=== PATIENT | female | born 1955 | race Hispanic/Latino ===

== ENCOUNTER 2019-01-13 00:34 | Emergency (ER) | payer OTHER ==
[~2019-01-13] VITALS: Ht 154.9 cm; Wt 62.1 kg
--- OUTSIDE RECORDS SUMMARY | 2019-01-13 00:38 | XMS REPORT | Summary of Care ---
Author Author [facility] Organization [facility] Address Unknown Phone Unavailable Encounter BROCK Solano(CORRINA) [id number] Date(s): 03/04/15 - 03/04/15 [facility] [address] [place] [address]- Discharge Disposition: Home Attending Physician: Petty Pardo MD Referring Physician: Petty Pardo MD Vital Signs No data available for this section Problem List Condition Effective Dates Status Health Status Informant Atrophic vaginitis1 07/22/13 Active Benign essential 07/10/13 Active hypertension2 Screening for breast Active cancer(Confirmed) Chronic depression3 07/10/13 Active GERD Active (gastroesophageal reflux disease)(Confirmed) Generalized 09/04/14 Active osteoarthritis4 History of polyp of 09/04/14 Active colon5 Hypertriglyceridemia 07/10/13 Active 6 Hypomagnesemia7, 8 01/27/14 Active Leg cramps9 01/02/14 Active Menopausal 05/29/14 Active ioaidzzs14 Musculoskeletal neck Active pain(Confirmed) Overactive quqcsbd25 10/09/14 Active Postmenopausal 07/22/13 Active state12 Diabetes mellitus 07/10/13 Active type 2, controlled, without [id number] Urinary 10/09/14 Active pmodbroorrrt59 Varicose veins of 09/04/14 Active lower huqwdosgk80 1Data migrated from [employer] on 09/23/14. 2Data migrated from [employer] on 09/23/14. 3Data migrated from [employer] on 09/23/14. 4Data migrated from [employer] on 10/29/14. 5Data migrated from [employer] on 10/29/14. 6Data migrated from [employer] on 09/23/14. 7Data migrated from [employer] on 10/29/14. 8Data migrated from [employer] on 09/23/14. 9Data migrated from [employer] on 09/23/14. 10Data migrated from [employer] on 10/29/14. 11Data migrated from [employer] on 10/29/14. 12Data migrated from [employer] on 09/23/14. 13Data migrated from [employer] on 09/23/14. 14Data migrated from [employer] on 10/29/14. 15Data migrated from [employer] on 10/29/14. Allergies, Adverse Reactions, Alerts Substance Reaction Severity Status NKDA Active Medications No data available for this section Results No data available for this section Immunizations Vaccine Date Refusal Reason influenza virus vaccine, inactivated 02/02/15 Procedures Procedure Date Related Diagnosis Body Site Colonoscopy1 11/22/12 Excision of cyst of breast2 Partial hysterectomy3 1polyp, repeat in 2 years 2right breast 3due to DUB, was left with one ovary, 1993 Social History Social History Type Response Substance Abuse Use: None. Exercise Exercise duration: 30. Exercise frequency: 5-6 times/week. Exercise type: Walking. 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 Alcohol Past Smoking Status Never smoker; Concerns about tobacco use in household: No; Exposure to Tobacco Smoke None; Cigarette Smoking Last 365 Days No; Reg Smoking Cessation Counseling No Assessment and Plan No data available for this section
--- OUTSIDE RECORDS SUMMARY | 2019-01-13 00:38 | XMS REPORT | Summary of Care ---
Author Author [facility] Organization [facility] Address Unknown Phone Unavailable Encounter BROCK Solano(CORRINA) [id number] Date(s): 10/27/16 - 10/27/16 [facility] [address] [place] [address]- [phone] Discharge Diagnosis: Shoulder dislocation Discharge Diagnosis: Fall Discharge Disposition: Home or Self Care Attending Physician: Kelley Clay MD Vital Signs 1 2 3 Most recent to oldest [Reference Range]: 154.94 cm (10/27/16 12:31 PM) Height 98 DegF (10/27/16 5:20 PM) 97.9 DegF (10/27/16 12:31 PM) Temperature Oral [96.4-99.1 DegF] 107/53 mmHg (10/27/16 5:20 PM) 122/63 mmHg (10/27/16 3:12 PM) 134/62 mmHg (10/27/16 2:33 PM) Blood Pressure [90-140/60-90 mmHg] 16 BRMIN (10/27/16 5:20 PM) 13 BRMIN *LOW* (10/27/16 3:12 PM) 12 BRMIN *LOW* (10/27/16 2:33 PM) Respiratory Rate [14-20 BRMIN] 88 bpm (10/27/16 1:54 PM) 97 bpm (10/27/16 12:31 PM) Peripheral Pulse Rate [60-100 bpm] 62.273 kg (10/27/16 12:31 PM) Weight 25.94 m2 (10/27/16 12:31 PM) Body Mass Index Problem List Condition Effective Dates Status Health Status Informant Anxiety Active disorder(Confirmed) Atrophic vaginitis1 07/22/13 Active Benign essential 07/10/13 Active hypertension(Confirm ed)2 Screening for breast Active cancer(Confirmed) Bronchitis(Confirmed Active ) Chronic 07/10/13 Active depression(Confirmed )3 DM (diabetes Resolved mellitus)(Confirmed) Fatigue(Confirmed) Active Fatty Active liver(Confirmed) GERD Active (gastroesophageal reflux disease)(Confirmed) Generalized 09/04/14 Active osteoarthritis(Confi rmed)4 History of polyp of 09/04/14 Active colon5 Menopausal hot Active flushes(Confirmed) Hyperlipidemia(Confi Active rmed) Hypertriglyceridemia 07/10/13 Active 6 Hypomagnesemia7, 8 01/27/14 Active Leg cramps9 01/02/14 Active Elevated liver Active enzymes(Confirmed) Menopausal 05/29/14 Active uihhzpfo56 Musculoskeletal neck Active pain(Confirmed) Overactive romsbeg19 10/09/14 Active Postmenopausal 07/22/13 Active state12 Pain in right Active shoulder(Confirmed) Insomnia(Confirmed) Active Diabetes mellitus Active type 2, controlled(Confirmed ) Urinary 10/09/14 Active incontinence(Confirm ed)13 Varicose veins of 09/04/14 Active lower extremity(Confirmed) 14 1Data migrated from [employer] on 09/23/14. [...] 09/23/14. 13Data migrated from [employer] on 10/29/14. 14Data migrated from [employer] on 10/29/14. Allergies, Adverse Reactions, Alerts Substance Reaction Severity Status NKDA Active Medications ketAMINE 60 mg, 6 mL, Route: IVP, Drug form: INJ, ONCE, Dosing Weight 62.273, kg, Priorit y: STAT, Start date: 10/27/16 13:26:00 CDT, Stop date: 10/27/16 13:26:00 CDT Start Date: 10/27/16 Stop Date: 10/27/16 Status: Completed morphine Sulfate 4 mg, Route: IVP, ONCE, Dosing Weight 62.273, kg, Priority: STAT, Start date: 12:34:00 CDT, Stop date: 10/27/16 12:34:00 CDT Start Date: 10/27/16 Stop Date: 10/27/16 Status: Completed propofol 60 mg, 6 mL, Route: IVP, Drug form: SUSP, ONCE, Dosing Weight 62.273, kg, Priori ty: STAT, Start date: 10/27/16 13:27:00 CDT, Stop date: 10/27/16 13:27:00 CDT Notes: If Diprivan - change bottle & tubing every 12 hrPer state nursing law propofol can only be given by a nurse if patient is intubated or being intubated (unless the nurse is a [employer]). Same as: Diprivan Start Date: 10/27/16 Stop Date: 10/27/16 Status: Completed Tylenol with Codeine #3 oral tablet 1 tab, PO, Q6H, PRN Pain, X 7 day, # 28 tab, 0 Refill(s) Start Date: 10/27/16 Stop Date: 11/03/16 Status: Ordered Results No data available for this section Immunizations Given and Recorded Vaccine Date Status Refusal Reason influenza virus vaccine, inactivated 02/02/15 Given influenza virus vaccine, inactivated1 01/02/14 Given 1Result Comment: fluzone (quadrivalent) no preservative (>3 yrs.) [[id number]]. Migrated from [facility] ; Data migrated from [employer] on 11/28/2014. Procedures Procedure Date Related Diagnosis Body Site Mammogram - screening 03/24/16 Colonoscopy1 09/2015 Bone density scan 2016 Eye examination 2015 Partial hysterectomy2 1993 Excision of cyst of breast3 1Dr Buzz Pending report 2due to DUB, was left with one ovary, 1993 3right breast Social History Social History Type Response Substance [...]
--- OUTSIDE RECORDS SUMMARY | 2019-01-13 00:38 | XMS REPORT | Summary of Care ---
Author Author [facility] Organization [facility] Address Unknown Phone Unavailable Encounter BROCK Solano(FIN) [id number] Date(s): 03/07/17 - 03/07/17 [facility] [address], [address] [place] [address]- [phone] Attending Physician: Shelby Ramirez DO Vital Signs Most recent to 1 oldest [Reference Range]: Height 152.4 cm (03/07/17 9:31 AM) Temperature Oral 98.4 DegF [96.4-99.1 DegF] (03/07/17 9:31 AM) Blood Pressure 135/84 mmHg [90-140/60-90 mmHg] (03/07/17 9:31 AM) Respiratory Rate 14 BRMIN [14-20 BRMIN] (03/07/17 9:31 AM) Peripheral Pulse 80 bpm Rate [60-100 bpm] (03/07/17 9:31 AM) Weight 61.818 kg (03/07/17 9:31 AM) Body Mass Index 26.62 m2 (03/07/17 9:31 AM) Problem List Condition Effective Dates Status Health Status Informant Anxiety Active disorder(Confirmed) Benign essential 07/10/13 Active hypertension(Confirm ed)1 Chronic 07/10/13 Active depression(Confirmed )2 Fatty Active liver(Confirmed) GERD Active (gastroesophageal reflux disease)(Confirmed) Generalized 09/04/14 Active osteoarthritis(Confi rmed)3 History of polyp of 09/04/14 Active colon4 S/P right rotator Active cuff repair(Confirmed) Hyperlipidemia(Confi Active rmed) Hyperlipidemia(Confi Active rmed) Hypomagnesemia5, 6 01/27/14 Active Elevated liver Active enzymes(Confirmed) Overactive bladder7 10/09/14 Active Insomnia(Confirmed) Active Diabetes mellitus Active type 2, controlled(Confirmed ) Varicose veins of 09/04/14 Active lower extremity(Confirmed) 8 1Data migrated from [employer] on 09/23/14. 2Data migrated from [employer] on 09/23/14. 3Data migrated from [employer] on 10/29/14. 4Data migrated from [employer] on 10/29/14. 5Data migrated from [employer] on 10/29/14. 6Data migrated from [employer] on 09/23/14. 7Data migrated from [employer] on 10/29/14. 8Data migrated from [employer] on 10/29/14. Allergies, Adverse Reactions, Alerts Substance Reaction Severity Status citalopram1 Active 1dizzy Medications No Known Medications Results No data available for this section Immunizations Given and Recorded Vaccine Date Status Refusal Reason pneumococcal 13-valent vaccine1 02/27/17 Given influenza virus vaccine, inactivated 02/02/15 Given influenza virus vaccine, inactivated2 01/02/14 Given 1Result Comment: PATIENT WAITED IN ROOM TEN MINS NO ALLERGIC REACTION. 2Result Comment: fluzone (quadrivalent) no preservative (>3 yrs.) [[id number]]. Migrated from [employer] ; Data migrated from [employer] on 11/28/2014. Procedures Procedure Date Related Diagnosis Body Site Rotator cuff repair1 01/18/17 Mammogram - screening 03/24/16 Colonoscopy2 09/2015 Bone density scan 2016 Eye examination 2016 Partial hysterectomy3 1993 Excision of cyst of breast4 1right arm 2Dr Buzz Pending report 3due to [facility], was left with one ovary, 1993 4right breast Social History Social History Type Response Substance Abuse Use: None. Exercise Exercise duration: 30. Exercise frequency: 5-6 times/week. Exercise type: Walking. 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 Alcohol Current, Frequency: 1-2 times per month. Smoking Status Never smoker; Exposure to Tobacco Smoke None; Cigarette Smoking Last 365 Days No; Reg Smoking Cessation Counseling No Assessment and Plan No data available for this section
--- OUTSIDE RECORDS SUMMARY | 2019-01-13 00:38 | XMS REPORT | Summary of Care ---
Author Author [facility] Organization [facility] Address Unknown Phone Unavailable Encounter BROCK Solano(CORRINA) [id number] Date(s): 06/30/16 - 06/30/16 [facility] [address] [place] [address]- [phone] Discharge Disposition: Home or Self Care Attending Physician: Syl Clayton MD Referring Physician: Syl Clayton MD Vital Signs No data available for this section Problem List Condition Effective Dates Status Health Status Informant Anxiety Active disorder(Confirmed) Atrophic vaginitis1 07/22/13 Active Benign essential 07/10/13 Active hypertension(Confirm ed)2 Screening for breast Active cancer(Confirmed) Chronic 07/10/13 Active depression(Confirmed )3 Fatigue(Confirmed) Active Fatty Active liver(Confirmed) GERD Active (gastroesophageal reflux disease)(Confirmed) Generalized 09/04/14 Active osteoarthritis(Confi rmed)4 History of polyp of 09/04/14 Active colon5 Hyperlipidemia(Confi Active rmed) Hypertriglyceridemia 07/10/13 Active 6 Hypomagnesemia7, 8 01/27/14 Active Leg cramps9 01/02/14 Active Elevated liver Active enzymes(Confirmed) Menopausal 05/29/14 Active ojdupniz38 Musculoskeletal neck Active pain(Confirmed) Overactive uohmhvc59 10/09/14 Active Postmenopausal 07/22/13 Active state12 Prediabetes(Confirme Active d) Insomnia(Confirmed) Active Diabetes mellitus Active type 2, controlled(Confirmed ) Diabetes mellitus 07/10/13 Active type 2, controlled, without complications(Confir med)13 Urinary 10/09/14 Active incontinence(Confirm ed)14 Varicose veins of 09/04/14 Active lower thxifzhsr30 1Data migrated from [employer] on 09/23/14. [...] Comment: fluzone (quadrivalent) no preservative (>3 yrs.) [[id number]]. Migrated from [employer] ; Data migrated from [employer] on 11/28/2014. Procedures Procedure Date Related Diagnosis Body Site Mammogram - screening 03/24/16 Colonoscopy1 09/2015 Bone density scan 2016 Eye examination 2016 Excision of cyst of breast2 Partial hysterectomy3 1polyp, repeat in 2 years 2right breast 3due to [facility], was left with one ovary, 1993 Social [...]
--- OUTSIDE RECORDS SUMMARY | 2019-01-13 00:38 | XMS REPORT | Summary of Care ---
Author Author [facility] Organization [facility] Address Unknown Phone Unavailable Encounter BROCK Solano(CORRINA) [id number] Date(s): 01/18/17 - 01/18/17 [facility] [address] [place] [address]- [phone] Discharge Disposition: Home or Self Care Attending Physician: Kush Mckeon MD Referring Physician: Kush Mckeon MD Vital Signs 1 2 3 Most recent to oldest [Reference Range]: 154.94 cm (01/11/17 10:18 AM) Height 98.4 DegF (01/11/17 10:18 AM) Temperature Oral [96.4-99.1 DegF] 120/76 mmHg (01/18/17 4:45 PM) 126/75 mmHg (01/18/17 4:30 PM) 109/79 mmHg (01/18/17 4:15 PM) Blood Pressure [90-140/60-90 mmHg] 16 BRMIN (01/18/17 5:00 PM) 15 BRMIN (01/18/17 4:45 PM) 15 BRMIN (01/18/17 4:30 PM) Respiratory Rate [14-20 BRMIN] 69 bpm (01/11/17 10:18 AM) Peripheral Pulse Rate [60-100 bpm] 63.636 kg (01/11/17 10:18 AM) Weight 26.51 m2 (01/11/17 10:18 AM) Body Mass Index Problem List Condition Effective Dates Status Health Status Informant Anxiety Active disorder(Confirmed) Atrophic vaginitis1 07/22/13 Active Benign essential 07/10/13 Active hypertension(Confirm ed)2 Screening for breast Active cancer(Confirmed) Bronchitis(Confirmed Active ) Chronic 07/10/13 Active depression(Confirmed )3 DM (diabetes Active mellitus)(Confirmed) Rotator cuff tear, Active right(Confirmed) Fatigue(Confirmed) Active Fatty Active liver(Confirmed) GERD Active (gastroesophageal reflux disease)(Confirmed) Generalized 09/04/14 Active osteoarthritis(Confi rmed)4 History of polyp of 09/04/14 Active colon5 Menopausal hot Active flushes(Confirmed) Hyperlipidemia(Confi Active rmed) Hyperlipidemia(Confi Active rmed) Hypertriglyceridemia 07/10/13 Active 6 Hypomagnesemia7, 8 01/27/14 Active Leg cramps9 01/02/14 Active Elevated liver Active enzymes(Confirmed) Menopausal 05/29/14 Active [id number] Depression(Confirmed Active ) Musculoskeletal neck Active pain(Confirmed) Overactive [id number] 10/09/14 Active Postmenopausal 07/22/13 Active state12 Pain [...] Substance Reaction Severity Status NKDA Active Medications acetaminophen-hydrocodone 325 mg-10 mg oral tablet 1 tab, Route: PO, Drug Form: TAB, Dosing Weight 63.636, kg, Q4H, PRN Pain Score 4-6, Start date: 01/18/17 14:06:00 CDT, Duration: 30 day, Stop date: 02/17/17 14 :05:00 CDT Notes: Do not exceed 4gm/day of acetaminophen. (Same as: Amisha 325/10) Start Date: 01/18/17 Stop Date: 01/19/17 Status: Discontinued albuterol-ipratropium 2.5-0.5 mg inhalation solution 3 mL, Route: NEB, Drug Form: SOLN, Dosing Weight 63.636, kg, ONCE, STAT, Start d ate: 01/18/17 7:01:00 CDT, Stop date: 01/18/17 7:01:00 CDT Notes: (Same as: Zeinab) Start Date: 01/18/17 Stop Date: 01/18/17 Status: Discontinued ANES acetaminophen 1,000 mg, Route: PO, Drug form: TAB, ONCE, Dosing Weight 63.636, kg, PRN Pain Sc ore 1-3, Start date: 01/18/17 13:11:00 CDT, Duration: 1 doses or times, Stop christal e: Limited # of times Start Date: 01/18/17 Stop Date: 01/18/17 Status: Discontinued ANES albuterol 0.083% inhalation solution 2.49 mg, Route: NEB, Q20Min, Dosing Weight 63.636, kg, PRN Wheezing, Priority: S TAT, Start date: 01/18/17 13:11:00 CDT, Duration: 30 day, Stop date: 02/17/17 13 :10:00 CDT Start Date: 01/18/17 Stop Date: 01/18/17 Status: Discontinued ANES dexamethasone 4 mg, Route: IVP, ONCE, Dosing Weight 63.636, kg, PRN Nausea & Vomiting, Start date: 01/18/17 13:11:00 CDT Start Date: 01/18/17 Stop Date: 01/18/17 Status: Discontinued ANES diphenhydrAMINE 12.5 mg, Route: IVP, Drug form: INJ, Q6H, Dosing Weight 63.636, kg, PRN Itching, Start date: 01/18/17 13:11:00 CDT, Duration: 30 day, Stop date: 02/17/17 13:10: 00 CDT Start Date: 01/18/17 Stop Date: 01/18/17 Status: Discontinued ANES esmolol 10 mg, Route: IVP, Q5Min, Dosing Weight 63.636, kg, PRN Other -See Comment, Star t date: 01/18/17 13:11:00 CDT, Duration: 5 doses or times, Stop date: Limited # of times Start Date: 01/18/17 Stop Date: 01/18/17 Status: Discontinued ANES fentaNYL 50 microgram, Route: IVP, Q5Min, Dosing Weight 63.636, kg, PRN Pain Score 7-10, Priority: Routine, Start date: 01/18/17 13:11:00 CDT, Duration: 2 doses or times , Stop date: Limited # of times Start Date: 01/18/17 Stop Date: 01/18/17 Status: Discontinued ANES fentaNYL 25 microgram, Route: IVP, Q5Min, Dosing Weight 63.636, kg, PRN Pain Score 4-6, P riority: Routine, Start date: 01/18/17 13:11:00 CDT, Duration: 4 doses or times, Stop date: Limited # of times Start Date: 01/18/17 Stop Date: 01/18/17 Status: Discontinued ANES flumazenil 0.2 mg, Route: IVP, PRN, Dosing Weight 63.636, kg, PRN Benzodiazepine Reversal, Initial dose, Start date: 01/18/17 13:11:00 CDT, Duration: 30 day, Stop date: 13:10:00 CDT Start Date: 01/18/17 Stop Date: 01/18/17 Status: Discontinued ANES hydrALAZINE 10 mg, Route: IVP, Q20Min, Dosing Weight 63.636, kg, PRN Elevated BP, Start date : 01/18/17 13:11:00 CDT, Duration: 2 doses or times, Stop date: Limited # of kyara es Start Date: 01/18/17 Stop Date: 01/18/17 Status: Discontinued ANES HYDROmorphone 0.5 mg, Route: IVP, Q5Min, Dosing Weight 63.636, kg, PRN Pain Score 7-10, Start date: 01/18/17 13:11:00 CDT, Duration: 4 doses or times, Stop date: Limited # of times Start Date: 01/18/17 Stop Date: 01/18/17 Status: Discontinued ANES labetalol 10 mg, Route: IVP, Q5Min, Dosing Weight 63.636, kg, PRN Elevated BP, Start date: 01/18/17 13:11:00 CDT, Duration: 5 doses or times, Stop date: Limited # of times Start Date: 01/18/17 Stop Date: 01/18/17 Status: Discontinued ANES meperidine 12.5 mg, Route: IVP, Q30Min, Dosing Weight 63.636, kg, PRN Other -See Comment, F or shivering, Start date: 01/18/17 13:11:00 CDT, Duration: 2 doses or times, Sto p date: Limited # of times Start Date: 01/18/17 Stop Date: 01/18/17 Status: Discontinued ANES morphine Sulfate 4 mg, Route: IVP, Q5Min, Dosing Weight 63.636, kg, PRN Pain Score 7-10, Start da te: 01/18/17 13:11:00 CDT, Duration: 3 doses or times, Stop date: Limited # of t imes Start Date: 01/18/17 Stop Date: 01/18/17 Status: Discontinued ANES morphine Sulfate 2 mg, Route: IVP, Q5Min, Dosing Weight 63.636, kg, PRN Pain Score 4-6, Start christal e: 01/18/17 13:11:00 CDT, Duration: 5 doses or times, Stop date: Limited # of ti mes Start Date: 01/18/17 Stop Date: 01/18/17 Status: Discontinued ANES naloxone 0.4 mg, Route: IVP, Q2MIN, Dosing Weight 63.636, kg, PRN Narcotic Reversal, Star t date: 01/18/17 13:11:00 CDT, Duration: 8 doses or times, Stop date: Limited # of times Start Date: 01/18/17 Stop Date: 01/18/17 Status: Discontinued ANES ondansetron 4 mg, Route: IVP, ONCE, Dosing Weight 63.636, kg, PRN Nausea & Vomiting, Start date: 01/18/17 13:11:00 CDT Start Date: 01/18/17 Stop Date: 01/18/17 Status: Completed ANES oxyCODONE 10 mg, Route: PO, Drug form: TAB, Q4H, Dosing Weight 63.636, kg, PRN Pain Score 7-10, Start date: 01/18/17 13:11:00 CDT, Duration: 30 day, Stop date: 02/17/17 1 3:10:00 CDT Start Date: 01/18/17 Stop Date: 01/18/17 Status: Discontinued ANES oxyCODONE 5 mg, Route: PO, Drug form: TAB, Q4H, Dosing Weight 63.636, kg, PRN Pain Score 4 -6, Start date: 01/18/17 13:11:00 CDT, Duration: 30 day, Stop date: 02/17/17 13: 10:00 CDT Start Date: 01/18/17 Stop Date: 01/18/17 Status: Discontinued ceFAZolin (ANES) Route: IV, Drug form: INJ, ONCE, Stop date: 01/18/17 11:05:00 CDT Start Date: 01/18/17 Stop Date: 01/18/17 Status: Completed ceFAZolin + sodium chloride 0.9% INJ 100 mL 1 gm, Route: IVPB, ONCALL, Start date: 01/18/17 7:00:00 CDT, Duration: 1 day, St op date: 01/19/17 6:59:00 CDT, ABX Indication: Surgical Prophylaxis Notes: (Same As: Catia Hull) MEDICATION WASTE Product Size: 1000 mgP roduct Wasted: ___ mg Start Date: 01/18/17 Stop Date: 01/19/17 Status: Discontinued cyclobenzaprine 5 mg oral tablet 5 mg=1 tab, PO, PRN Start Date: 01/11/17 Status: Ordered dexamethasone (ANES) Route: IV, Drug form: INJ, ONCE, Stop date: 01/18/17 11:05:00 CDT Start Date: 01/18/17 Stop Date: 01/18/17 Status: Completed Dilaudid (ANES) Route: IV, Drug form: INJ, ONCE, Stop date: 01/18/17 14:04:00 CDT Start Date: 01/18/17 Stop Date: 01/18/17 Status: Completed fentaNYL (ANES) Route: IV, Drug form: INJ, ONCE, Stop date: 01/18/17 11:00:00 CDT Start Date: 01/18/17 Stop Date: 01/18/17 Status: Completed Lactated Ringers 1,000 mL 1,000 mL, Rate: 125 ml/hr, Infuse over: 8 hr, Route: IV, Dosing Weight 63.636 kg , Total Volume: 1,000, Start date: 01/18/17 13:11:00 CDT, Duration: 30 day, Stop date: 02/17/17 13:10:00 CDT Start Date: 01/18/17 Stop Date: 01/18/17 Status: Discontinued Lactated Ringers 1,000 mL 1,000 mL, Rate: 25 ml/hr, Infuse over: 40 hr, Route: IV, Dosing Weight 63.636 kg , Total Volume: 1,000, Start date: 01/18/17 7:01:00 CDT, Duration: 30 day, Stop date: 02/17/17 7:00:00 CDT Start Date: 01/18/17 Stop Date: 01/18/17 Status: Discontinued LR 1000 mL INJ (ANES) Route: IV, Total Volume: 1,000, Start date: 01/18/17 9:00:00 CDT, Stop date: 10:00:00 CDT Start Date: 01/18/17 Stop Date: 01/18/17 Status: Completed midazolam (ANES) Route: IV, Drug form: SOLN, ONCE, Stop date: 01/18/17 11:00:00 CDT Start Date: 01/18/17 Stop Date: 01/18/17 Status: Completed ondansetron (ANES) Route: IV, Drug form: INJ, ONCE, Stop date: 01/18/17 14:04:00 CDT Start Date: 01/18/17 Stop Date: 01/18/17 Status: Completed propofol (ANES) Route: IV, Drug form: INJ, ONCE, Stop date: 01/18/17 11:00:00 CDT Start Date: 01/18/17 Stop Date: 01/18/17 Status: Completed rocuronium (ANES) Route: IV, Drug form: INJ, ONCE, Stop date: 01/18/17 11:00:00 CDT Start Date: 01/18/17 Stop Date: 01/18/17 Status: Completed Ropivacaine 0.2% 400ML OnQ [id number] 400 mL Dosing: Per Nerve Block Dosing Order, Route: NERVE BLOCK, Start date: 01/18/17 1 4:06:00 CDT 400 mL, Drug Form: INJ, Dosing Weight 63.636, kg, Duration: 30 day, Stop date: 02/17/17 14:05:00 CDT Notes: Final concentration: Ropivacaine 0.2% 400 ml Start Date: 01/18/17 Stop Date: 01/19/17 Status: Discontinued sodium chloride 0.9% 500 ml INJ 500 mL 500 mL, Rate: 25 ml/hr, Infuse over: 20 hr, Route: IV, Dosing Weight 63.636 kg, Total Volume: 500, Start date: 01/18/17 7:01:00 CDT, Duration: 30 day, Stop date : 02/17/17 7:00:00 CDT Start Date: 01/18/17 Stop Date: 01/18/17 Status: Discontinued tramadol 50 mg, 1 tab, Route: PO, Drug form: TAB, Q6H, Dosing Weight 63.636, kg, PRN Pain Score 1-3, Start date: 01/18/17 14:06:00 CDT, Duration: 30 day, Stop date: 01/23 11/07 14:05:00 CDT Notes: Not to exceed 400mg/day. (Same As: Ultram) Start Date: 01/18/17 Stop Date: 01/19/17 Status: Discontinued trazodone 50 mg oral tablet 50 mg=1 tab, PO, PRN, PRN Insomnia Start Date: 01/11/17 Status: Ordered vancomycin (ANES) (ANES) Route: IV, Drug form: INJ, Start date: 01/18/17 9:00:00 CDT, Stop date: 01/18/17 10:00:00 CDT Start Date: 01/18/17 Stop Date: 01/18/17 Status: Completed vancomycin + sodium chloride 0.9%, adv 250 ml 250 mL 1,000 mg, Route: IV, Drug form: INJ, ONCE, Dosing Weight 63.636, kg, Start date: 01/18/17 7:13:00 CDT, Stop date: 01/18/17 7:13:00 CDT, ABX Indication: Surgical Prophylaxis Notes: TIME CRITICAL MEDICATIONMix with NS 250ml ADVInfusion rate< 1000 mg: infuse over 1 [id number] - 1500 mg: infuse over 1.5 [id number] - 2000 mg: infuse over 2 hours> 2001 mg: infuse over 2.5 hours Start Date: 01/18/17 Stop Date: 01/18/17 Status: Completed Zofran 4 mg, 2 mL, Route: IVP, Drug form: INJ, ONCE, Dosing Weight 63.636, kg, Start da te: 01/18/17 16:06:00 CDT, Stop date: 01/18/17 16:06:00 CDT Notes: (Same as: Zofran) MEDICATION WASTE Product Size: 4 mgProduct Was kwesi: ___ mg Start Date: 01/18/17 Stop Date: 01/18/17 Status: Ordered Results ELECTROLYTES Most recent to 1 oldest [Reference Range]: Sodium Lvl [135-145 140 mEq/L mEq/L] (01/11/17 10:29 AM) Potassium Lvl 4.2 mEq/L [3.5-5.1 mEq/L] (01/11/17 10:29 AM) Chloride Lvl [95-109 103 mEq/L mEq/L] (01/11/17 10:29 AM) CO2 [24-32 mEq/L] 29 mEq/L (01/11/17 10:29 AM) AGAP [10.0-20.0 12.2 mEq/L mEq/L] (01/11/17 10:29 AM) CHEM PANEL Most recent to 1 oldest [Reference Range]: Creatinine Lvl 0.71 mg/dL [0.50-1.40 mg/dL] (01/11/17 10:29 AM) eGFR 93 mL/min/1.73m2 1 *NA* (01/11/17 10:29 AM) BUN [7-22 mg/dL] 18 mg/dL (01/11/17 10:29 AM) Glucose Lvl [70-99 129 mg/dL mg/dL] *HI* (01/11/17 10:29 AM) Calcium Lvl 9.8 mg/dL [8.5-10.5 mg/dL] (01/11/17 10:29 AM) 1Result Comment: The eGFR is calculated using the CKD-EPI formula. In most young, healthy individuals the eGFR will be >90 mL/min/1.73m2. The eGFR declines with age. An eGFR of 60-89 may be normal in some populations, particularly the elderly, for whom the CKD-EPI formula has not been extensively validated. Use of the eGFR is not recommended in the following populations: Individuals with unstable creatinine concentrations, including patients and those with serious co-morbid conditions. Patients with extremes in muscle mass or diet. The data above are obtained from the National Kidney Disease Education Program ( NKDEP) which additionally recommends that when the eGFR is used in patients with extremes of body mass index for purposes of drug dosing, the eGFR should be mul tiplied by the estimated BMI. SPECIAL CHEMISTRY Most recent to 1 oldest [Reference Range]: Hgb A1C [<=5.6 %] 7.2 % *HI* (01/11/17 10:29 AM) Immunizations Given and Recorded Vaccine Date Status Refusal Reason influenza virus vaccine, inactivated 02/02/15 Given influenza virus vaccine, inactivated1 01/02/14 Given 1Result Comment: fluzone (quadrivalent) no preservative (>3 yrs.) [[id number]]. Migrated from [employer] ; Data migrated from [facility] on 11/28/2014. Procedures Procedure Date Related Diagnosis Body Site Mammogram - screening 03/24/16 Colonoscopy1 09/2015 Bone density scan 2016 Eye examination 2015 Partial hysterectomy2 1993 Excision of cyst of breast3 1Dr Buzz Pending report 2due to [facility], was left with one ovary, 1993 3right [...]
--- OUTSIDE RECORDS SUMMARY | 2019-01-13 00:38 | XMS REPORT | Summary of Care ---
Author Author [facility] Organization [facility] Address Unknown Phone Unavailable Encounter BROCK Solano(FIN) [id number] Date(s): 11/28/17 - 11/28/17 [facility] [address], [address] [place] [address]- [phone] Discharge Disposition: Home or Self Care Attending Physician: Syl Clayton MD Vital Signs Most recent to 1 oldest [Reference Range]: Height 157.48 cm (11/28/17 12:04 PM) Temperature Oral 98.6 DegF [96.4-99.1 DegF] (11/28/17 12:04 PM) Blood Pressure 130/78 mmHg [90-140/60-90 mmHg] (11/28/17 12:04 PM) Respiratory Rate 16 BRMIN [14-20 BRMIN] (11/28/17 12:04 PM) Peripheral Pulse 78 bpm Rate [60-100 bpm] (11/28/17 12:04 PM) Weight 62.273 kg (11/28/17 12:04 PM) Body Mass Index 25.11 m2 (11/28/17 12:04 PM) Problem List Condition Effective Dates Status Health Status Informant Anxiety Active disorder(Confirmed) Benign essential 07/10/13 Active hypertension(Confirm ed)1 Chronic 07/10/13 Active depression(Confirmed )2 Fatty Active liver(Confirmed) GERD Active (gastroesophageal reflux disease)(Confirmed) Generalized 09/04/14 Active osteoarthritis(Confi rmed)3 History of polyp of 09/04/14 Active colon4 S/P right rotator Active cuff repair(Confirmed) Mild cognitive Active impairment(Confirmed ) Mixed Active hyperlipidemia(Confi rmed) Overactive bladder5 10/09/14 Active Insomnia(Confirmed) Active Small vessel Active disease, cerebrovascular(Conf irmed) Diabetes mellitus Active type 2, controlled(Confirmed ) Varicose veins of 09/04/14 Active lower extremity(Confirmed) 6 1Data migrated from [employer] on 09/23/14. 2Data migrated from [employer] on 09/23/14. 3Data migrated from [employer] on 10/29/14. 4Data migrated from [employer] on 10/29/14. 5Data migrated from [employer] on 10/29/14. 6Data migrated from [employer] on 10/29/14. Allergies, Adverse Reactions, Alerts Substance Reaction Severity Status NKDA Active Medications clobetasol topical 0.05% cream 1 appl, TOP, BID, X 14 day, # 60 gm, 1 Refill(s), [id number] Start Date: 11/28/17 Stop Date: 12/26/17 Status: Completed Results No data available for this section Immunizations Given and Recorded Vaccine Date Status Refusal Reason pneumococcal 13-valent vaccine1 02/27/17 Given influenza virus vaccine, inactivated 02/02/15 Given influenza virus vaccine, inactivated2 01/02/14 Given 1Result Comment: PATIENT WAITED IN ROOM TEN MINS NO ALLERGIC REACTION. 2Result Comment: fluzone (quadrivalent) no preservative (>3 yrs.) [[id number]]. Migrated from [facility] ; Data migrated from [employer] on 11/28/2014. Procedures Procedure Date Related Diagnosis Body Site Status Bone density scan1 05/02/18 Completed Mammogram - screening2, 3 05/02/18 Completed Eye examination4 02/27/18 Completed Rotator cuff repair5 01/18/17 Completed Colonoscopy6 09/2015 Completed Partial hysterectomy1993 Completed Excision of cyst of breast8 Completed 1NORMAL 2There is no mammographic evidence of malignancy. A 1 year screening mammogram is recommended.(05/03/2019) 3There is no mammographic evidence of malignancy. A 1 year screening mammogram is recommended.(03/29/2018) 4Dr Norma 5right arm 6Dr Buzz Pending report 7due to [facility], was left with one ovary, 1993 8right breast Social History Social History Type Response Substance Abuse Use: None. Exercise Exercise duration: 30. Exercise frequency: 5-6 times/week. Exercise type: Walking. 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 Alcohol Current, Frequency: 1-2 times per month. Smoking Status Never smoker; Exposure to Tobacco Smoke None; Cigarette Smoking Last 365 Days No; Reg Smoking Cessation Counseling No entered on: 05/29/18 Assessment and Plan No data available for this section
--- OUTSIDE RECORDS SUMMARY | 2019-01-13 00:38 | XMS REPORT | Summary of Care ---
Author Author [facility] Organization [facility] Address Unknown Phone Unavailable Encounter BROCK Solano([place]) [id number] Date(s): 03/28/17 - 03/28/17 [facility] [address] [place] [address]- [phone] Final: Encounter for screening mammogram for malignant neoplasm of breast Discharge Disposition: Home or Self Care Attending [...] Severity Status citalopram1 Active 1dizzy Medications No data available for this section Results No data available for this section Immunizations Given and Recorded Vaccine Date Status Refusal Reason pneumococcal 13-valent vaccine1 02/27/17 Given influenza virus vaccine, inactivated 02/02/15 Given influenza virus vaccine, inactivated2 01/02/14 Given 1Result Comment: PATIENT WAITED IN ROOM TEN MINS NO ALLERGIC REACTION. 2Result Comment: fluzone (quadrivalent) no preservative (>3 yrs.) [[id number]]. Migrated from [employer] ; Data migrated from [employer] on 11/28/2014. Procedures Procedure Date Related Diagnosis Body Site Rotator cuff repair1 01/18/17 Mammogram - screening 03/24/16 Colonoscopy2 09/2015 Bone density scan 2016 Eye examination 2015 Partial hysterectomy3 1993 Excision of cyst of breast4 1right arm 2Dr Buzz Pending report 3due to [facility], was left with one ovary, 1993 4right [...]
--- OUTSIDE RECORDS SUMMARY | 2019-01-13 00:38 | XMS REPORT | Summary of Care ---
Author Author [facility] Organization [facility] Address Unknown Phone Unavailable Encounter BROCK Solano([place]) [id number] Date(s): 12/13/16 - 12/13/16 [facility] [address] [place] [address]- [phone] Discharge Disposition: Home or Self Care Attending Physician: Venkatesh Smith MD Referring Physician: Venkatesh Smith MD Vital Signs No data available for [...] Elevated liver Active enzymes(Confirmed) Menopausal 05/29/14 Active [id number] Musculoskeletal neck Active pain(Confirmed) Overactive 10/09/14 Active Postmenopausal 07/22/13 Active state12 Pain [...] Comment: fluzone (quadrivalent) no preservative (>3 yrs.) [[id number]]. Migrated from [employer] ; Data migrated from [employer] on 11/28/2014. Procedures Procedure Date Related Diagnosis Body Site Mammogram - screening 03/24/16 Colonoscopy1 09/2015 Bone density scan 2016 Eye examination 2015 Partial hysterectomy2 1993 Excision of cyst of breast3 1Dr Buzz Pending report 2due to [facility], was left with one ovary, 1993 3right [...]
--- OUTSIDE RECORDS SUMMARY | 2019-01-13 00:38 | XMS REPORT | Summary of Care ---
Author Organization Unknown Address Unknown Phone Unavailable Encounter [facility]([place]) [id number] Date(s): 01/10/14 - 01/10/14 [facility] [address] Discharge Disposition: Home Physician Attending: Petty Pardo MD Physician_Referring: Petty Pardo MD Reason for Visit ROUTINE Problem List No data available for this section Allergies, Adverse Reactions, Alerts No data available for this section Medications No data available for this section Medications Administered During Your Visit No data available for this section Immunizations No data available for this section
--- OUTSIDE RECORDS SUMMARY | 2019-01-13 00:38 | XMS REPORT | Continuity of Care Document ---
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 Name Role Phone [employer] Unavailable Unavailable Problems Problem Status Onset Date Classification Date Reported Comments Source Encounter for screening mammogram for malignant neoplasm of breast 05/08/2018 11/20/2018 [facility] SCREENINGNO PAIN,LUMPS OR DC/M81.0 Active 04/10/2018 [facility] Fatty (change of) liver, not elsewhere classified 03/23/2018 08/01/2018 [facility] DX: FATTY LIVER Active 11/29/2017 [facility] Strain of muscle(s) and tendon(s) of the rotator cuff of right shoulder, subsequent encounter 07/12/2017 10/12/2017 [facility] OSTEOPOROSIS Active 06/19/2017 [facility] SCREENING MAMMOGRAM Active 02/28/2017 [facility] RIGHT SHOULDER Active 01/18/2017 [facility] RT SHOULDER Active 01/18/2017 [facility] UNK Active 01/03/2017 [facility] DX: S43.011A=ANTERIOR SUBLUXATION OF RIG Active 11/16/2016 [facility] Unspecified dislocation of unspecified shoulder joint, initial encounter 10/27/2016 10/30/2016 [facility] Unspecified fall, initial encounter 10/27/2016 10/30/2016 [facility] ARM PAIN Active 10/27/2016 [facility] ELEVATED LIVER ENZYMES Active 06/27/2016 [facility] SCREENING MAMMO Active 02/23/2015 [facility] Urinary incontinence (finding) Active 10/09/2014 Problem 01/21/2017 Data migrated from [employer] on 10/29/14[facility] Bl[facility] muscle dysfunction - overactive (disorder) Active 10/09/2014 Problem 12/17/2018 Data migrated from [employer] on 10/29/14. [facility], Rocco OPITucker Servin,[facility], [facility] URINARY INCONTINENCE Active 10/09/2014 Condition 10/09/2014 [facility] OVERACTIVE BLADDER Active 10/09/2014 Condition 10/09/2014 [facility] Generalized osteoarthritis (disorder) Active 09/04/2014 Problem 12/17/2018 Data migrated from [employer] on 10/29/14. [facility], [place], NAYLA Servin, [facility], [facility] History of polyp of colon (situation) Active 09/04/2014 Problem 12/17/2018 Data migrated from [employer] on 10/29/14. [facility], [place], NAYLA Servin, [place], [facility] Varicose veins of lower extremity (disorder) Active 09/04/2014 Problem 12/17/2018 Data migrated from [employer] on 10/29/14. [facility], [place], NAYLA Servin, [place], [facility] ROUTINE GENERAL MEDICAL EXAMINATION AT A HEALTH CARE FACILITY Inactive 09/04/2014 Condition 10/09/2014 [facility] VARICOSE VEINS, LOWER EXTREMITIES Active 09/04/2014 Condition 10/09/2014 [facility] COLONIC POLYPS, HX OF Active 09/04/2014 Condition 10/09/2014 [facility] OSTEOARTHRITIS Active 09/04/2014 Condition 10/09/2014 [facility] HOT FLASHES Active 05/29/2014 Condition 10/09/2014 [facility] Hypomagnesemia (disorder) Active 01/27/2014 Problem 10/22/2017 Data migrated from [employer] on 10/29/14. Data migrated from [employer] on 09/23/14. [facility], [place], NAYLA Servin, [place], [facility] HYPOMAGNESEMIA Active 01/27/2014 Condition 10/09/2014 [facility] Cramp in lower limb (finding) Active 01/02/2014 Problem 01/21/2017 Data migrated from [employer] on 09/23/14. [facility], Frieda LEG CRAMPS Inactive 01/02/2014 Condition 10/09/2014 [facility] NEED FOR PROPHYLACTIC VACCINATION AND INOCULATION AGAINST INFLUENZA Inactive 01/02/2014 Condition 10/09/2014 [facility] BREAST SCREENING, UNSPECIFIED Inactive 01/02/2014 Condition 10/09/2014 [facility] ROUTINE Active 01/02/2014 [facility] DYSURIA Inactive 07/29/2013 Condition 10/09/2014 [facility] CYSTITIS, ACUTE Inactive 07/29/2013 Condition 10/09/2014 [facility] Atrophic vaginitis (disorder) Active 07/22/2013 Problem 01/21/2017 Data migrated from [employer] on 09/23/14. [facility]occo [facility] Postmenopausal state (finding) Active 07/22/2013 Problem 01/21/2017 Data migrated from [employer] on 09/23/14. [facility] CONTACT DERMATITIS Inactive 07/22/2013 Condition 10/09/2014 [facility] ROUTINE GENERAL MEDICAL EXAM@HEALTH CARE FACL Inactive 07/22/2013 Condition 10/09/2014 [facility] POSTMENOPAUSAL STATUS Active 07/22/2013 Condition 10/09/2014 [facility] VAGINITIS, ATROPHIC Active 07/22/2013 Condition 10/09/2014 [facility] HORMONE REPLACEMENT THERAPY Inactive 07/22/2013 Condition 10/09/2014 [facility] BODY MASS INDEX BETWEEN 19-24 ADULT Inactive 07/22/2013 Condition 10/09/2014 [facility] Hypertriglyceridemia (disorder) Active 07/10/2013 Problem 01/21/2017 Data migrated from [employer] on 09/23/14. [facility] Benign essential hypertension (disorder) Active 07/10/2013 Problem 12/17/2018 Data migrated from [employer] on 09/23/14. [facility], [place], NAYLA Servin,[facility], [facility] Chronic depression (disorder) Active 07/10/2013 Problem 12/17/2018 Data migrated from [employer] on 09/23/14. [facility], [place], NAYLA Servin,[facility], [facility] Type II diabetes mellitus without complication (disorder) Active 07/10/2013 Problem 07/03/2016 Data migrated from [employer] on 09/23/14. [facility] URTICARIA Inactive 07/10/2013 Condition 10/09/2014 [facility] DIABETES MELLITUS Active 07/10/2013 Condition 07/10/2013 [facility] HYPERTENSION, BENIGN Active 07/10/2013 Condition 07/10/2013 [facility] HYPERLIPIDEMIA Active 07/10/2013 Condition 10/09/2014 [facility] ANXIETY DEPRESSION Active 07/10/2013 Condition 07/10/2013 [facility] DIAB W/O COMP TYPE II/UNS NOT STATED UNCNTRL Active 07/10/2013 Condition 10/09/2014 [facility] ESSENTIAL HYPERTENSION, BENIGN Active 07/10/2013 Condition 10/09/2014 [facility] DEPRESSION Active 07/10/2013 Condition 10/09/2014 [facility] Breast neoplasm screening status (finding) Active Problem 01/21/2017 [facility] Bronchitis (disorder) Active Problem 01/21/2017 [facility] Diabetes mellitus (disorder) Active Problem 01/21/2017 [facility] Disorder of rotator cuff (disorder) Active Problem 01/21/2017 [facility] Fatigue (finding) Active Problem 01/21/2017 [facility] Menopausal flushing (finding) Active Problem 01/21/2017 [facility] Depressive disorder (disorder) Active Problem 01/21/2017 [facility] Neck pain (finding) Active Problem 01/21/2017 [facility] Shoulder pain (finding) Active Problem 01/21/2017 [facility] Hyperlipidemia (disorder) Active Problem 10/22/2017 [facility], [facility],[facility] Liver enzymes abnormal (finding) Active Problem 08/12/2017 [facility], [facility] [place],[facility] Anterior subluxation of right humerus, subsequent encounter 10/12/2017 [facility] Stiffness of right shoulder, not elsewhere classified 10/12/2017 [facility] Pain in right shoulder 10/12/2017 [facility] Abnormal posture 10/12/2017 [facility] Limitation of activities due to disability 10/12/2017 [facility] Anxiety disorder (disorder) Active Problem 12/17/2018 [facility], [facility] [place],[facility], [facility] Steatosis of liver (disorder) Active Problem 12/17/2018 [facility], [facility] [place],[facility] Gastroesophageal reflux disease (disorder) Active Problem 12/17/2018 [facility], [facility] [place],[facility], [facility] History of repair of musculotendinous cuff of shoulder (situation) Active Problem 12/17/2018 [facility], [facility] [place],[facility] Insomnia (disorder) Active Problem 12/17/2018 [facility], [facility] [place],[facility] Diabetes mellitus type 2 (disorder) Active Problem 12/17/2018 [facility], [facility] [place],[facility] Mild cognitive disorder (disorder) Active Problem 12/17/2018 [facility] Small vessel cerebrovascular disease (disorder) Active Problem 12/17/2018 [facility] Superior glenoid labrum lesion of right shoulder, subsequent encounter 10/12/2017 [facility] Muscle weakness (generalized) 10/12/2017 [facility] Localized edema 10/12/2017 [facility] Other abnormalities of gait and mobility 10/12/2017 [facility] Mixed hyperlipidemia (disorder) Active Problem 12/17/2018 [facility] Prediabetes (finding) Active Problem 07/03/2016 [facility] Age-related osteoporosis without current pathological fracture 11/20/2018 [facility] ENCNTR SCREEN MAMMOGRAM FOR MALIGNANT NE Active [facility] Medications Medication Details Route Status Patient Instructions Ordering Provider Order Date Source simethicone 125 mg oral tablet 125 mg=1 tab, PO, TID-After Meals, X 14 day, # 60 tab, 0 Refill(s), Pharmacy: [id number] Active 09/25/2018 [facility] Metformin hydrochloride 500 MG Oral Tablet 500 mg=1 tab, PO, BID-Meals, # 180 tab, 1 Refill(s), Pharmacy: [id number] Active 09/25/2018 [facility] lovastatin 10 mg oral tablet =1 tab, PO, Bedtime, # 90 tab, 1 Refill(s), Pharmacy: [id number] Active 09/25/2018 [facility] lansoprazole 30 mg oral delayed release capsule See Instructions, TAKE ONE CAPSULE BY MOUTH ONCE DAILY, # 90 tab, 1 Refill(s), Pharmacy: [id number] Active 09/25/2018 [facility] hydrochlorothiazide 12.5 mg oral tablet =1 tab, PO, Daily, STOP LISINOPRIL., # 90 tab, 1 Refill(s), Pharmacy: [id number] Active 09/25/2018 [facility] citalopram 20 mg oral tablet =1 tab, PO, Daily, # 90 tab, 1 Refill(s), Pharmacy: [id number] Active 09/25/2018 [facility] Trazodone Hydrochloride 50 MG Oral Tablet 50 mg=1 tab, PO, Bedtime, PRN Insomnia, # 90 tab, 1 Refill(s), Pharmacy: [id number] Active 09/25/2018 [facility] clobetasol topical 0.05% cream 1 appl, TOP, BID, X 14 day, # 60 gm, 1 Refill(s), Pharmacy: [id number] No Longer Active 05/29/2018 [facility] ciprofloxacin 500 mg oral tablet 500 mg=1 tab, PO, Q12H, for UTI, X 3 day, # 6 tab, 0 Refill(s), Pharmacy: [id number] No Longer Active 03/01/2018 [facility] clobetasol topical 0.05% cream 1 appl, TOP, BID, X 14 day, # 60 gm, 1 Refill(s), Pharmacy: [id number] No Longer Active 11/28/2017 [facility] Metformin hydrochloride 500 MG Oral Tablet 500 mg=1 tab, PO, BID-Meals, # 180 tab, 1 Refill(s), Pharmacy: [id number] Active 08/29/2017 [facility] hydrochlorothiazide 12.5 mg oral tablet 12.5 mg=1 tab, PO, Daily, # 90 tab, 1 Refill(s), Pharmacy: [id number], STOP LISINOPRIL Active 08/29/2017 [facility] lovastatin 10 mg oral tablet 10 mg=1 tab, PO, Bedtime, # 90 tab, 1 Refill(s), Pharmacy: [id number] Active 08/29/2017 [facility] tramadol hydrochloride 50 MG Oral Tablet 50 mg=1 tab, PO, Q6H, PRN Pain, # 40 tab, 0 Refill(s) Active 08/29/2017 [facility] Aspirin Enteric Coated 81 mg oral delayed release tablet 81 mg=1 tab, PO, Daily, 0 Refill(s) Active 08/29/2017 [facility] Metformin hydrochloride 500 MG Oral Tablet 500 mg=1 tab, PO, BID-Meals, # 180 tab, 1 Refill(s), Pharmacy: [id number] No Longer Active 07/10/2017 [facility] citalopram 20 mg oral tablet See Instructions, # 30 tab, Refill(s) 4, TAKE ONE TABLET BY MOUTH ONCE DAILY, Pharmacy: [facility] Active 07/04/2017 [facility] Fenofibrate 130 MG Oral Capsule See Instructions, # 90 unknown unit, Refill(s) 1, TAKE ONE CAPSULE BY MOUTH ONCE DAILY, Pharmacy: [facility] No Longer Active 07/04/2017 [facility] Metformin hydrochloride 500 MG Oral Tablet See Instructions, # 90 tab, Refill(s) 1, TAKE ONE TABLET BY MOUTH ONCE DAILY, Pharmacy: [facility] No Longer Active 07/04/2017 [facility] citalopram 20 mg oral tablet 20 mg=1 tab, PO, Daily, # 30 tab, 1 Refill(s) No Longer Active 05/30/2017 [facility] Zofran 4 mg, 2 mL, Route: IVP, Drug form: INJ, ONCE, Dosing Weight 63.636, kg, Start date: 01/18/17 16:06:00 CDT, Stop date: 01/18/17 16:06:00 CDTNotes: (Same as: Zofran) MEDICATION WASTE Product Size: 4 mg Product Wasted: ___ mg Inactive 01/18/2017 [facility] Tramadol 50 mg, 1 tab, Route: PO, Drug form: TAB, Q6H, Dosing Weight 63.636, kg, PRN Pain Score 1-3, Start date: 01/18/17 14:06:00 CDT, Duration: 30 day, Stop date: 02/17/17 14:05:00 CDTNotes: Not to exceed 4 00mg/day. (Same As: Ultram) No Longer Active 01/18/2017 [facility] Acetaminophen 325 MG / Hydrocodone Bitartrate 10 MG Oral Tablet 1 tab, Route: PO, Drug Form: TAB, Dosing Weight 63.636, kg, Q4H, PRN Pain Score 4-6, Start date: 01/18/17 14:06:00 CDT, Duration: 30 day, Stop date: 02/17/17 14:05:00 CDTNotes: Do not exceed 4gm/day of acetaminophen. (Same as: [place] 325/10) No Longer Active 01/18/2017 [facility] ropivacaine Dosing: Per Nerve Block Dosing Order, Route: NERVE BLOCK, Start date: 01/18/17 14:06:00 CDT 400 mL, Drug Form: INJ, Dosing Weight 63.636, kg, Duration: 30 day, Stop date: 02/17/17 14:05:00 CDTNotes: Final concentration: Ropivacaine 0.2% 400 ml No Longer Active 01/18/2017 [facility] Dilaudid (ANES) Route: IV, Drug form: INJ, ONCE, Stop date: 01/18/17 14:04:00 CDT Inactive 01/18/2017 [facility] ondansetron (ANES) Route: IV, Drug form: INJ, ONCE, Stop date: 01/18/17 14:04:00 CDT Inactive 01/18/2017 [facility] Meperidine 12.5 mg, Route: IVP, Q30Min, Dosing Weight 63.636, kg, PRN Other -See Comment, For shivering, Start date: 01/18/17 13:11:00 CDT, Duration: 2 doses or times, Stop date: Limited # of times Inactive 01/18/2017 [facility] Albuterol 0.83 MG/ML Inhalant Solution 2.49 mg, Route: NEB, Q20Min, Dosing Weight 63.636, kg, PRN Wheezing, Priority: STAT, Start date: 01/18/17 13:11:00 CDT, Duration: 30 day, Stop date: 02/17/17 13:10:00 CDT Inactive 01/18/2017 [facility] Diphenhydramine 12.5 mg, Route: IVP, Drug form: INJ, Q6H, Dosing Weight 63.636, kg, PRN Itching, Start date: 01/18/17 13:11:00 CDT, Duration: 30 day, Stop date: 02/17/17 13:10:00 CDT Inactive 01/18/2017 [facility] Ondansetron 4 mg, Route: IVP, ONCE, Dosing Weight 63.636, kg, PRN Nausea & Vomiting, Start date: 01/18/17 13:11:00 CDT Inactive 01/18/2017 [facility] Dexamethasone 4 mg, Route: IVP, ONCE, Dosing Weight 63.636, kg, PRN Nausea & Vomiting, Start date: 01/18/17 13:11:00 CDT Inactive 01/18/2017 [facility] Naloxone 0.4 mg, Route: IVP, Q2MIN, Dosing Weight 63.636, kg, PRN Narcotic Reversal, Start date: 01/18/17 13:11:00 CDT, Duration: 8 doses or times, Stop date: Limited # of times Inactive 01/18/2017 [facility] Hydromorphone 0.5 mg, Route: IVP, Q5Min, Dosing Weight 63.636, kg, PRN Pain Score 7-10, Start date: 01/18/17 13:11:00 CDT, Duration: 4 doses or times, Stop date: Limited # of times Inactive 01/18/2017 [facility] Fentanyl 50 microgram, Route: IVP, Q5Min, Dosing Weight 63.636, kg, PRN Pain Score 7-10, Priority: Routine, Start date: 01/18/17 13:11:00 CDT, Duration: 2 doses or times, Stop date: Limited # of times Inactive 01/18/2017 [facility] Flumazenil 0.2 mg, Route: IVP, PRN, Dosing Weight 63.636, kg, PRN Benzodiazepine Reversal, Initial dose, Start date: 01/18/17 13:11:00 CDT, Duration: 30 day, Stop date: 02/17/17 13:10:00 CDT Inactive 01/18/2017 [facility] Morphine 4 mg, Route: IVP, Q5Min, Dosing Weight 63.636, kg, PRN Pain Score 7-10, Start date: 01/18/17 13:11:00 CDT, Duration: 3 doses or times, Stop date: Limited # of times Inactive 01/18/2017 [facility] Oxycodone 10 mg, Route: PO, Drug form: TAB, Q4H, Dosing Weight 63.636, kg, PRN Pain Score 7-10, Start date: 01/18/17 13:11:00 CDT, Duration: 30 day, Stop date: 02/17/17 13:10:00 CDT Inactive 01/18/2017 [facility] Labetalol 10 mg, Route: IVP, Q5Min, Dosing Weight 63.636, kg, PRN Elevated BP, Start date: 01/18/17 13:11:00 CDT, Duration: 5 doses or times, Stop date: Limited # of times Inactive 01/18/2017 [facility] Acetaminophen 1,000 mg, Route: PO, Drug form: TAB, ONCE, Dosing Weight 63.636, kg, PRN Pain Score 1-3, Start date: 01/18/17 13:11:00 CDT, Duration: 1 doses or times, Stop date: Limited # of times Inactive 01/18/2017 [facility] Hydralazine 10 mg, Route: IVP, Q20Min, Dosing Weight 63.636, kg, PRN Elevated BP, Start date: 01/18/17 13:11:00 CDT, Duration: 2 doses or times, Stop date: Limited # of times Inactive 01/18/2017 [facility] esmolol 10 mg, Route: IVP, Q5Min, Dosing Weight 63.636, kg, PRN Other -See Comment, Start date: 01/18/17 13:11:00 CDT, Duration: 5 doses or times, Stop date: Limited # of times Inactive 01/18/2017 [facility] Calcium Chloride 0.0014 MEQ/ML / Potassium Chloride 0.004 MEQ/ML / Sodium Chloride 0.103 MEQ/ML / Sodium Lactate 0.028 MEQ/ML Injectable Solution 1,000 mL, Rate: 125 ml/hr, Infuse over: 8 hr, Route: IV, Dosing Weight 63.636 kg, Total Volume: 1,000, Start date: 01/18/17 13:11:00 CDT, Duration: 30 day, Stop date: 02/17/17 13:10:00 CDT Inactive 01/18/2017 [facility] ceFAZolin (ANES) Route: IV, Drug form: INJ, ONCE, Stop date: 01/18/17 11:05:00 CDT Inactive 01/18/2017 [facility] dexamethasone (ANES) Route: IV, Drug form: INJ, ONCE, Stop date: 01/18/17 11:05:00 CDT Inactive 01/18/2017 [facility] rocuronium (ANES) Route: IV, Drug form: INJ, ONCE, Stop date: 01/18/17 11:00:00 CDT Inactive 01/18/2017 [facility] midazolam (ANES) Route: IV, Drug form: SOLN, ONCE, Stop date: 01/18/17 11:00:00 CDT Inactive 01/18/2017 [facility] propofol (ANES) Route: IV, Drug form: INJ, ONCE, Stop date: 01/18/17 11:00:00 CDT Inactive 01/18/2017 [facility] fentaNYL (ANES) Route: IV, Drug form: INJ, ONCE, Stop date: 01/18/17 11:00:00 CDT Inactive 01/18/2017 [facility] LR 1000 mL INJ (ANES) Route: IV, Total Volume: 1,000, Start date: 01/18/17 9:00:00 CDT, Stop date: 01/18/17 10:00:00 CDT Inactive 01/18/2017 [facility] vancomycin (ANES) (ANES) Route: IV, Drug form: INJ, Start date: 01/18/17 9:00:00 CDT, Stop date: 01/18/17 10:00:00 CDT Inactive 01/18/2017 [facility] Vancomycin 1,000 mg, Route: IV, Drug form: INJ, ONCE, Dosing Weight 63.636, kg, Start date: 01/18/17 7:13:00 CDT, Stop date: 01/18/17 7:13:00 CDT, ABX Indication: Surgical ProphylaxisNotes: TIME CRITICAL MEDICATION Mix with NS 250ml ADV Infusion rate 2001 mg: infuse over 2.5 hours Inactive 01/18/2017 [facility] Albuterol 0.833 MG/ML / Ipratropium [place] 0.167 MG/ML Inhalant Solution 3 mL, Route: NEB, Drug Form: SOLN, Dosing Weight 63.636, kg, ONCE, STAT, Start date: 01/18/17 7:01:00 CDT, Stop date: 01/18/17 7:01:00 CDTNotes: (Same as: Duoneb) Inactive 01/18/2017 [facility] Calcium Chloride 0.0014 MEQ/ML / Potassium Chloride 0.004 MEQ/ML / Sodium Chloride 0.103 MEQ/ML / Sodium Lactate 0.028 MEQ/ML Injectable Solution 1,000 mL, Rate: 25 ml/hr, Infuse over: 40 hr, Route: IV, Dosing Weight 63.636 kg, Total Volume: 1,000, Start date: 01/18/17 7:01:00 CDT, Duration: 30 day, Stop date: 02/17/17 7:00:00 CDT Inactive 01/18/2017 [facility] sodium chloride 0.9% 500 ml INJ 500 mL 500 mL, Rate: 25 ml/hr, Infuse over: 20 hr, Route: IV, Dosing Weight 63.636 kg, Total Volume: 500, Start date: 01/18/17 7:01:00 CDT, Duration: 30 day, Stop date: 02/17/17 7:00:00 CDT Inactive 01/18/2017 [facility] ceFAZolin + sodium chloride 0.9% INJ 100 mL 1 gm, Route: IVPB, ONCALL, Start date: 01/18/17 7:00:00 CDT, Duration: 1 day, Stop date: 01/19/17 6:59:00 CDT, ABX Indication: Surgical ProphylaxisNotes: (Same As: Catia Hull) MEDICATION WASTE Product Size: 1000 mg Product Wasted: ___ mg No Longer Active 01/18/2017 [facility] cyclobenzaprine 5 mg oral tablet 5 mg=1 tab, PO, PRN Active 01/11/2017 [facility] Trazodone Hydrochloride 50 MG Oral Tablet 50 mg=1 tab, PO, PRN, PRN Insomnia Active 01/11/2017 [facility] Acetaminophen 300 MG / Codeine Phosphate 30 MG Oral Tablet [Tylenol with Codeine #3] 1 tab, PO, Q6H, PRN Pain, X 7 day, # 28 tab, 0 Refill(s) Active 10/27/2016 [facility] Propofol 60 mg, 6 mL, Route: IVP, Drug form: SUSP, ONCE, Dosing Weight 62.273, kg, Priority: STAT, Start date: 10/27/16 13:27:00 CDT, Stop date: 10/27/16 13:27:00 CDTNotes: If Diprivan - change bottle & tubing every 12 hr Per state nursing law propofol can only be given by a nurse if patient is intubated or being intubated (unless the nurse is a MAINTENANCE DATA ANALYST). Same as: Diprivan Inactive 10/27/2016 [facility] Ketamine 60 mg, 6 mL, Route: IVP, Drug form: INJ, ONCE, Dosing Weight 62.273, kg, Priority: STAT, Start date: 10/27/16 13:26:00 CDT, Stop date: 10/27/16 13:26:00 CDT Inactive 10/27/2016 [facility] Morphine 4 mg, Route: IVP, ONCE, Dosing Weight 62.273, kg, Priority: STAT, Start date: 10/27/16 12:34:00 CDT, Stop date: 10/27/16 12:34:00 CDT Inactive 10/27/2016 [facility] DICLOFENAC SODIUM 50 MG TBEC Take one tablet by mouth three times a day as needed for pain. Take with food. Active 10/09/2014 [facility] GLUCOSAMINE CHONDR COMPLEX CAPS Take one capsule by mouth twice daily. Active 09/04/2014 [facility] VIVELLE-DOT 0.025 MG/24HR PTTW Apply one patch on the skin on upper back or abdominal area twice a week. Active 09/04/2014 [facility] JOBST ANTI-EM THIGH HIGH SMALL MISC Wear compression stockings during waking hours and remove at bedtime. Active 09/04/2014 [facility] TRAZODONE HCL 50 MG TABS Take one tablet by mouth at bedtime as needed for insomnia. Active 07/15/2014 [facility] TRAZODONE HCL 50 MG TABS Take one tablet by mouth at bedtime as needed for insomnia. Active 07/15/2014 [facility] ESTROVEN MAXIMUM STRENGTH TABS Take one tablet by mouth daily. No Longer Active 05/29/2014 [facility] MAGNESIUM OXIDE 250 MG TABS Take one tablet by mouth daily. No Longer Active 01/27/2014 [facility] ALLERGY RELIEF Take one tablet by mouth daily. Active 01/02/2014 [facility] POTASSIUM 99MG Take one tablet by mouth daily. No Longer Active 01/02/2014 [facility] LOVASTATIN 40 MG TABS Take one tablet by mouth at bedtime. Active 07/29/2013 [facility] BACTRIM DS 800-160 MG TABS Take one tablet by mouth twice daily for 3 days. No Longer Active 07/29/2013 [facility] PYRIDIUM 200 MG TABS Take one tablet by mouth three times a day for 2 days. No Longer Active 07/29/2013 [facility] BACTRIM DS 800-160 MG TABS Take one tablet by mouth twice daily for 3 days. No Longer Active 07/29/2013 [facility] PYRIDIUM 200 MG TABS Take one tablet by mouth three times a day for 2 days. No Longer Active 07/29/2013 [facility] PYRIDIUM 200 MG TABS Take one tablet by mouth three times a day for 2 days. No Longer Active 07/29/2013 [facility] TRAZODONE HCL 50 MG TABS Take one tablet by mouth at bedtime as needed for insomnia. Active 07/22/2013 [facility] CITALOPRAM HYDROBROMIDE 10 MG TABS Take one tablet by mouth daily for 2 weeks. Then half a tablet daily for 2 weeks then discontinue. Active 07/22/2013 [facility] PREMARIN 0.3 MG TABS Take one tablet by mouth daily. Active 07/22/2013 [facility] TRAZODONE HCL 50 MG TABS Take one tablet by mouth at bedtime as needed for insomnia. Active 07/22/2013 [facility] CITALOPRAM HYDROBROMIDE 10 MG TABS Take one tablet by mouth daily.--please provide patient education Active 07/22/2013 [facility] PREMARIN 0.3 MG TABS Take one tablet by mouth daily. No Longer Active 07/22/2013 [facility] TRAZODONE HCL 50 MG TABS Take one tablet by mouth at bedtime as needed for insomnia. Active 07/22/2013 [facility] TRAZODONE HCL 50 MG TABS Take one tablet by mouth at bedtime as needed for insomnia. No Longer Active 07/22/2013 [facility] CELEXA 10 MG TABS Take one tablet by mouth daily. Active 07/22/2013 [facility] TRAZODONE HCL 50 MG TABS Take one tablet by mouth at bedtime as needed for insomnia. No Longer Active 07/22/2013 [facility] IBUPROFEN 400 MG TABS Take 1 tab by mouth three times daily as needed Active 07/10/2013 [facility] TRAZODONE HCL 50 MG TABS take 1 tab by mouth daily at night Active 07/10/2013 [facility] LISINOPRIL-HYDROCHLOROTHIAZIDE 10-12.5 MG TABS take 1 tab by mouth daily Active 07/10/2013 [facility] LOVASTATIN 20 MG TABS take 1 tab by mouth daily at bedtime Active 07/10/2013 [facility] METFORMIN HCL 500 MG TABS take 1 tab by mouth twice daily Active 07/10/2013 [facility] CITALOPRAM HYDROBROMIDE 20 MG TABS take 1 tab by mouth daily Active 07/10/2013 [facility] OMEPRAZOLE 20 MG TBEC take 1 tab by mouth daily Active 07/10/2013 [facility] PROBIOTIC CAPS take 1 cap by mouth daily Active 07/10/2013 [facility] IBUPROFEN 400 MG TABS Take 1 tab by mouth three times daily as needed Active 07/10/2013 [facility] LISINOPRIL-HYDROCHLOROTHIAZIDE 10-12.5 MG TABS take 1 tab by mouth daily Active 07/10/2013 [facility] METFORMIN HCL 500 MG TABS take 1 tab by mouth twice daily Active 07/10/2013 [facility] LANSOPRAZOLE 30 MG CPDR Take one tablet by mouth daily. Active 07/10/2013 [facility] IBUPROFEN 400 MG TABS Take 1 tab by mouth three times daily as needed Active 07/10/2013 [facility] METFORMIN HCL 500 MG TABS take 1 tab by mouth twice daily Active 07/10/2013 [facility] LISINOPRIL-HYDROCHLOROTHIAZIDE 10-12.5 MG TABS Take one tablet by mouth daily. Active 07/10/2013 [facility] ALEVE TABS Take one tablet by mouth twice daily as needed for pain. No Longer Active 07/10/2013 [facility] METFORMIN HCL 500 MG TABS take 1 tab by mouth twice daily Active 07/10/2013 [facility] Allergies, Adverse Reactions, Alerts Substance Category Reaction Severity Reaction type Status Date Reported Comments Source citalopram<sup>1</sup> Assertion Drug allergy Active dizzy [facility] [place] No Known Medication Allergies Assertion Drug allergy [facility] Immunizations Immunization Date Given Site Status Last Updated Comments Source pneumococcal 13-valent vaccine<sup>1</sup> 02/27/2017 Left Deltoid completed [place] Result Comment: PATIENT WAITED IN ROOM TEN MINS NO ALLERGIC REACTION. [facility], NAYLA Servin, [place],[facility] [place] influenza virus vaccine, inactivated 02/02/2015 Left Deltoid completed [place] [facility] [place],[facility] influenza immunization (Flu Vax) has been administered 01/02/2014 completed [facility] influenza virus vaccine, inactivated<sup>1</sup> 01/02/2014 Left Deltoid completed [facility] Result Comment: fluzone (quadrivalent) no preservative (>3 yrs.) [[id number]]. Migrated from OBS ; Data migrated from [employer] on 11/28/2014. [facility] influenza virus vaccine, inactivated<sup>2</sup> 01/02/2014 Left Deltoid completed [facility] Result Comment: fluzone (quadrivalent) no preservative (>3 yrs.) [[id number]]. Migrated from OBS ; Data migrated from [employer] on 11/28/2014. [facility] [place],[facility] Results Order Name Results Value Reference Range Date Interpretation Comments Source ELECTROLYTES AGAP 12.2 10.0 - 20.0 01/11/2017 [facility] ELECTROLYTES eGFR 93 01/11/2017 Result Comment: The eGFR is calculated using the [...] from the National Kidney Disease Education Program (NKDEP) which additionally recommends that when the eGFR is used in patients with extremes of body mass index for purposes of drug dosing, the eGFR should be multiplied by the estimated BMI. [facility] ELECTROLYTES Potassium Lvl 4.2 3.5 - 5.1 01/11/2017 [facility] ELECTROLYTES Calcium Lvl 9.8 8.5 - 10.5 01/11/2017 [facility] ELECTROLYTES Creatinine Lvl 0.71 0.50 - 1.40 01/11/2017 [facility] ELECTROLYTES Sodium Lvl 140 135 - 145 01/11/2017 [facility] ELECTROLYTES Chloride Lvl 103 95 - 109 01/11/2017 [facility] ELECTROLYTES CO2 29 24 - 32 01/11/2017 [facility] ELECTROLYTES BUN 18 7 - 22 01/11/2017 [facility] ELECTROLYTES Glucose Lvl 129 70 - 99 01/11/2017 [facility] SPECIAL CHEMISTRY Hgb A1C 7.2 <=5.6 % 01/11/2017 [facility] Chemistry HGBA1C 6.3 - 5.6 09/04/2014 [facility] TSH 0.824 0.360 - 3.740 09/04/2014 [facility] CHOLESTEROL 141 - 199 09/04/2014 [facility] TRIGLYCERIDE 191 - 149 09/04/2014 [facility] Chemistry HDL 43 >=61 09/04/2014 [facility] LDL 60 - 99 09/04/2014 [facility] MAGNESIUM 1.9 1.8 - 2.4 09/04/2014 [facility] SODIUM 142 MEQ/L 135 - 145 09/04/2014 [facility] POTASSIUM 3.9 MEQ/L 3.5 - 5.1 09/04/2014 [facility] CREATININE 0.5 0.5 - 1.4 09/04/2014 [facility] Chemistry BUN 14 7 - 22 09/04/2014 [facility] Chemistry BUN/CREAT 28 6 - 25 09/04/2014 [facility] ALBUMIN 4.4 3.5 - 5.0 09/04/2014 [facility] CALCIUM 9.7 8.5 - 10.5 09/04/2014 [facility] Chemistry SGPT (ALT) 32 0 - 65 09/04/2014 [facility] Chemistry SGOT (AST) 20 0 - 37 09/04/2014 [facility] Chemistry ALK PHOS 73 39 - 136 09/04/2014 [facility] Hematology HGB 14.8 12.0 - 16.0 09/04/2014 [facility] Hematology HCT 43.8 36.0 - 48.0 09/04/2014 [facility] Hematology PLATELETS 199 K/CMM 133 - 450 09/04/2014 [facility] Chemistry HGBA1C 6.2 - 5.6 05/07/2014 [facility] CHOLESTEROL 151 - 199 05/07/2014 [facility] TRIGLYCERIDE 131 - 149 05/07/2014 [facility] Chemistry HGBA1C 6.2 - 5.6 05/07/2014 [facility] Chemistry CHOLESTEROL 151 - 199 05/07/2014 [facility] Chemistry TRIGLYCERIDE 131 - 149 05/07/2014 [facility] Chemistry HDL 46 >=61 05/07/2014 [facility] Chemistry LDL 79 - 99 05/07/2014 [facility] Chemistry MAGNESIUM 2.1 1.8 - 2.4 05/07/2014 [facility] SODIUM 145 MEQ/L 135 - 145 05/07/2014 [facility] POTASSIUM 4.0 MEQ/L 3.5 - 5.1 05/07/2014 [facility] Chemistry CREATININE 0.5 0.5 - 1.4 05/07/2014 [facility] BUN 18 7 - 22 05/07/2014 [facility] Chemistry BUN/CREAT 36 6 - 25 05/07/2014 [facility] Chemistry ALBUMIN 4.1 3.5 - 5.0 05/07/2014 [facility] CALCIUM 9.3 8.5 - 10.5 05/07/2014 [facility] Chemistry SGPT (ALT) 28 0 - 65 05/07/2014 [facility] Chemistry SGOT (AST) 20 0 - 37 05/07/2014 [facility] Chemistry ALK PHOS 66 39 - 136 05/07/2014 [facility] MAGNESIUM 1.9 1.8 - 2.4 02/27/2014 [facility] Chemistry MAGNESIUM 1.9 1.8 - 2.4 02/27/2014 [facility] Chemistry HGBA1C 5.9 - 5.6 01/02/2014 [facility] TSH 1.060 0.360 - 3.740 01/02/2014 [facility] Chemistry CHOLESTEROL 143 - 199 01/02/2014 [facility] Chemistry HGBA1C 5.9 - 5.6 01/02/2014 [facility] Chemistry TSH 1.060 0.360 - 3.740 01/02/2014 [facility] Chemistry CHOLESTEROL 143 - 199 01/02/2014 [facility] TRIGLYCERIDE 217 - 149 01/02/2014 [facility] Chemistry HDL 42 >=61 01/02/2014 [facility] LDL 58 - 99 01/02/2014 [facility] Chemistry MAGNESIUM 1.6 1.8 - 2.4 01/02/2014 [facility] Chemistry SODIUM 140 MEQ/L 135 - 145 01/02/2014 [facility] POTASSIUM 4.0 MEQ/L 3.5 - 5.1 01/02/2014 [facility] Chemistry CREATININE 0.4 0.5 - 1.4 01/02/2014 [facility] BUN 11 7 - 22 01/02/2014 [facility] BUN/CREAT 28 6 - 25 01/02/2014 [facility] ALBUMIN 4.2 3.5 - 5.0 01/02/2014 [facility] CALCIUM 9.8 8.5 - 10.5 01/02/2014 [facility] Chemistry SGPT (ALT) 37 0 - 65 01/02/2014 [facility] Chemistry SGOT (AST) 27 0 - 37 01/02/2014 [facility] Chemistry ALK PHOS 70 39 - 136 01/02/2014 [facility] Hematology HGB 14.6 12.0 - 16.0 01/02/2014 [facility] Hematology HCT 42.7 36.0 - 48.0 01/02/2014 [facility] Hematology PLATELETS 201 K/CMM 133 - 450 01/02/2014 [facility] Urinalysis UA COLOR [place] 07/29/2013 [facility] Urinalysis BACTERIA URN Moderate 07/29/2013 [facility] Urinalysis UA COLOR [place] 07/29/2013 [facility] Urinalysis BACTERIA URN Moderate 07/29/2013 [facility] Urinalysis UA COLOR [place] 07/29/2013 [facility] Urinalysis BACTERIA URN Moderate 07/29/2013 [facility] Chemistry HGBA1C 6.0 - 5.6 07/22/2013 [facility] Chemistry TSH 0.741 0.360 - 3.740 07/22/2013 [facility] Chemistry HGBA1C 6.0 - 5.6 07/22/2013 [facility] Chemistry TSH 0.741 0.360 - 3.740 07/22/2013 [facility] Chemistry CHOLESTEROL 207 - 199 07/22/2013 [facility] Chemistry HGBA1C 6.0 - 5.6 07/22/2013 [facility] Chemistry TSH 0.741 0.360 - 3.740 07/22/2013 [facility] Chemistry CHOLESTEROL 207 - 199 07/22/2013 [facility] Chemistry HGBA1C 6.0 - 5.6 07/22/2013 [facility] Chemistry TSH 0.741 0.360 - 3.740 07/22/2013 [facility] Chemistry CHOLESTEROL 207 - 199 07/22/2013 [facility] Chemistry TRIGLYCERIDE 104 - 149 07/22/2013 [facility] Chemistry HDL 51 >=61 07/22/2013 [facility] Chemistry SODIUM 142 MEQ/L 135 - 145 07/22/2013 [facility] POTASSIUM 4.1 MEQ/L 3.5 - 5.1 07/22/2013 [facility] Chemistry CREATININE 0.5 0.5 - 1.4 07/22/2013 [facility] Chemistry BUN 14 7 - 22 07/22/2013 [facility] Chemistry BUN/CREAT 28 6 - 25 07/22/2013 [facility] Chemistry ALBUMIN 4.5 3.5 - 5.0 07/22/2013 [facility] Chemistry CALCIUM 10.0 8.5 - 10.5 07/22/2013 [facility] Chemistry SGPT (ALT) 22 0 - 65 07/22/2013 [facility] Chemistry SGOT (AST) 15 0 - 37 07/22/2013 [facility] Chemistry ALK PHOS 75 39 - 136 07/22/2013 [facility] Chemistry HGBA1C 6.0 - 5.6 07/22/2013 [facility] Chemistry TSH 0.741 0.360 - 3.740 07/22/2013 [facility] CHOLESTEROL 207 - 199 07/22/2013 [facility] TRIGLYCERIDE 104 - 149 07/22/2013 [facility] Chemistry HDL 51 >=61 07/22/2013 [facility] SODIUM 142 MEQ/L 135 - 145 07/22/2013 [facility] Chemistry POTASSIUM 4.1 MEQ/L 3.5 - 5.1 07/22/2013 [facility] Chemistry CREATININE 0.5 0.5 - 1.4 07/22/2013 [facility] Chemistry BUN 14 7 - 22 07/22/2013 [facility] Chemistry BUN/CREAT 28 6 - 25 07/22/2013 [facility] Chemistry ALBUMIN 4.5 3.5 - 5.0 07/22/2013 [facility] Chemistry CALCIUM 10.0 8.5 - 10.5 07/22/2013 [facility] Chemistry SGPT (ALT) 22 0 - 65 07/22/2013 [facility] Chemistry SGOT (AST) 15 0 - 37 07/22/2013 [facility] Chemistry ALK PHOS 75 39 - 136 07/22/2013 [facility] Chemistry HGBA1C 6.0 - 5.6 07/22/2013 [facility] Chemistry TSH 0.741 0.360 - 3.740 07/22/2013 [facility] Chemistry CHOLESTEROL 207 - 199 07/22/2013 [facility] Chemistry TRIGLYCERIDE 104 - 149 07/22/2013 [facility] Chemistry HDL 51 >=61 07/22/2013 [facility] Chemistry LDL 135 - 99 07/22/2013 [facility] Chemistry SODIUM 142 MEQ/L 135 - 145 07/22/2013 [facility] Chemistry POTASSIUM 4.1 MEQ/L 3.5 - 5.1 07/22/2013 [facility] Chemistry CREATININE 0.5 0.5 - 1.4 07/22/2013 [facility] Chemistry BUN 14 7 - 22 07/22/2013 [facility] Chemistry BUN/CREAT 28 6 - 25 07/22/2013 [facility] Chemistry ALBUMIN 4.5 3.5 - 5.0 07/22/2013 [facility] Chemistry CALCIUM 10.0 8.5 - 10.5 07/22/2013 [facility] Chemistry SGPT (ALT) 22 0 - 65 07/22/2013 [facility] Chemistry SGOT (AST) 15 0 - 37 07/22/2013 [facility] Chemistry ALK PHOS 75 39 - 136 07/22/2013 [facility] Chemistry HGBA1C 6.0 - 5.6 07/22/2013 [facility] Chemistry TSH 0.741 0.360 - 3.740 07/22/2013 [facility] Chemistry CHOLESTEROL 207 - 199 07/22/2013 [facility] Chemistry TRIGLYCERIDE 104 - 149 07/22/2013 [facility] Chemistry HDL 51 >=61 07/22/2013 [facility] Chemistry LDL 135 - 99 07/22/2013 [facility] Chemistry SODIUM 142 MEQ/L 135 - 145 07/22/2013 [facility] Chemistry POTASSIUM 4.1 MEQ/L 3.5 - 5.1 07/22/2013 [facility] Chemistry CREATININE 0.5 0.5 - 1.4 07/22/2013 [facility] Chemistry BUN 14 7 - 22 07/22/2013 [facility] Chemistry BUN/CREAT 28 6 - 25 07/22/2013 [facility] Chemistry ALBUMIN 4.5 3.5 - 5.0 07/22/2013 [facility] Chemistry CALCIUM 10.0 8.5 - 10.5 07/22/2013 [facility] Chemistry SGPT (ALT) 22 0 - 65 07/22/2013 [facility] Chemistry SGOT (AST) 15 0 - 37 07/22/2013 [facility] Chemistry ALK PHOS 75 39 - 136 07/22/2013 [facility] Hematology HGB 14.2 12.0 - 16.0 07/22/2013 [facility] Hematology HCT 42.3 36.0 - 48.0 07/22/2013 [facility] Hematology PLATELETS 198 K/CMM 133 - 450 07/22/2013 [facility] Hematology HGB 14.2 12.0 - 16.0 07/22/2013 [facility] Hematology HCT 42.3 36.0 - 48.0 07/22/2013 [facility] Hematology PLATELETS 198 K/CMM 133 - 450 07/22/2013 [facility] Hematology HGB 14.2 12.0 - 16.0 07/22/2013 [facility] Hematology HCT 42.3 36.0 - 48.0 07/22/2013 [facility] Hematology PLATELETS 198 K/CMM 133 - 450 07/22/2013 [facility] Hematology HGB 14.2 12.0 - 16.0 07/22/2013 [facility] Hematology HCT 42.3 36.0 - 48.0 07/22/2013 [facility] Hematology PLATELETS 198 K/CMM 133 - 450 07/22/2013 [facility] Pathology Reports No Data Provided for This Section Diagnostic Reports Report Value Date Source Breast Mammo Scrn HUBER incl CAD MA BILATERAL DIGITAL SCREENING MAMMOGRAM WITH CAD: 05/02/2018 CLINICAL: /Screening. Current study was evaluated with a Computer Aided Detection (CAD) system. COMPARISON:Comparison is made to exams dated: 03/28/2017 mammogram, 03/04/2015 mammogram, 01/10/2014 mammogram - [facility], 10/14/2012 mammogram, and 11/09/2010 mammogram. TECHNIQUE: Mammographic views were obtained using digital acquisition. [employer] Version 1.3 was utilized for computer aided detection. FINDINGS: There are scattered fibroglandular densities in both breasts. There is a benign appearing nodule in the left breast. There also are benign appearing calcifications and nodules in the right breast. No significant masses, calcifications, or other findings are seen in either breast. There has been no significant interval change. IMPRESSION: BENIGN RECOMMENDATION:There is no mammographic evidence of malignancy. A 1 year screening mammogram is recommended.(05/03/2019) This exam was interpreted at [id number] for [facility] [place]. Roshan louis/shirley:05/02/2018 15:38:25 Piping [employer] Specialist(s): Samira Balderrama, [facility] letter sent: BI-RADS 1/2 Mammogram BI-RADS: 2 Benign 05/02/2018 [facility] Bone Density Scan Study: Bone Density Scan Clinical Indication: - osteoporosis; Images of the axial lumbar spine and left hip have been performed using [employer] Discovery SL scanner. COMPARISON: None FINDINGS: The left hip bone mineral density is 108% of the peak reference bone mass with a T-score of 0.6. Left hip BMD is 1.041 g/cm2. Left femoral neck BMD is 0.831 g/cm2 and T-score of -0.4. The axial lumbar bone mineral density is 105% of the peak reference bone mass with a T-score 0.5. Axial lumbar average BMD is 1.103 g/cm2. IMPRESSION: 1. Normal bone mineral density of the left femoral neck. 2. Normal bone mineral density of the total left hip. 3. Normal bone mineral density of the lumbar spine. The World Health Organization has established that OSTEOPOROSIS occurs at -2.5 or more standard deviations (SD) below peak bone mass (T-score on the Hologic report). OSTEOPENIA (low bone mass) occurs at greater than -1.0 standard deviations to -2.5 standard deviations below peak bone mass. SL: [id number] 05/02/2018 [facility] Liver US Patient Name: XOCHILT FLETCHER : 1955; Age: 62 years Female MR: [id number] Study: Liver US 01/12/2018 10:56 AM CDT Clinical Indication: - fatty liver. COMPARISON: June 30, 2016 TECHNIQUE: Grayscale and limited color sonographic evaluation of the right upper quadrant of the abdomen and gallbladder region was performed with standard technique. Bowel gas limits detail. FINDINGS: LIVER: The visualized liver shows normal contour, size, and morphology. There is increased parenchymal echotexture. BILE DUCTS: The intrahepatic and extrahepatic bile ducts are not dilated. The common bile duct measures 3.6 mm. The distal common bile duct is not well seen. GALLBLADDER: There are no gallstones, gallbladder sludge, pericholecystic fluid or wall thickening. PANCREAS: The pancreas body is normal. The head and tail are obscured by bowel gas. ASCITES: There is no right upper quadrant abdominal ascites. IMPRESSION: 1. Hepatocellular disease most likely due to fatty infiltration. SL: [id number] 01/12/2018 [facility] cervical wo contrast MRI Spine cervical wo contrast MRI , 04/06/2017 9:13 AM [employer]. CLINICAL INDICATION: 62 years Female R29.2 Abnormal reflex - R29.2 Abnormal reflex . Comparison: None available. TECHNIQUE: Sagittal T1 and T2 weighted images were followed by axial T2-weighted views of the cervical spine without IV contrast. FINDINGS: Patient motion may limit evaluation. The cervical cord is normal in size and signal intensity. There is no syrinx. The cerebellar tonsils are normal in position above the level of the foramen magnum. C4-5 and C5-6 grade 1 anterolisthesis measure up to 2 mm. The vertebrae are otherwise normal in shape, signal intensity and alignment. The intervertebral disks are desiccated but normal in height. The prevertebral soft tissues are normal. C2-C3: No abnormality. C3-C4: No abnormality. C4-C5: Minimal disc osteophyte complex is exaggerated by the anterior listhesis with mild hypertrophy. No disc herniation or significant stenosis. C5-C6: Mild disc osteophyte complex is exaggerated by the anterior listhesis with moderate left greater than right uncovertebral mild facet hypertrophy. This results in moderate left and mild right neural foraminal narrowing with deformity of the left C6 nerve root. C6-C7: Mild disc osteophyte complexes with left greater right uncovertebral and facet hypertrophy. This results in mild left greater than right neural foraminal narrowing. C7-T1: No abnormality. IMPRESSION: Moderate multilevel degenerative changes detailed above including C4-5 and C5-6 grade 1 minimal anterior listhesis. Multilevel foraminal narrowing slight deformity of the left C6 nerve root. If there is clinical concern for instability, consider flexion-extension views. 04/06/2017 [facility] [place] Brain wo contrast MRI Brain wo contrast MRI 04/06/2017 9:12 AM [employer] Clinical Indication: R41.3 Other amnesia - R41.3 Other amnesia; Comparison: None TECHNIQUE: Multiplanar noncontrast MRI of the brain is performed. No intravenous gadolinium was given. FINDINGS: BRAIN: No diffusion restriction is identified. Mild cerebral atrophy is present. Small focus of right parietal subcortical white matter hemosiderin deposit is seen. There is no extra-axial fluid collection or intraparenchymal hemorrhage. Minimal bilateral frontal lobe increase FLAIR signal foci lesions are seen. CEREBELLOPONTINE REGIONS, SELLA, AND SKULL: The cerebellopontine angles appear unremarkable. No skull abnormality is seen. The pituitary gland appears unremarkable. VENTRICLES: The ventricles and sulci are normal in size and configuration for age. VISUALIZED VESSELS: Major intracranial flow voids are preserved. ORBITS, VISUALIZED PARANASAL SINUSES/MASTOIDS/CERVICAL SPINE: Paranasal sinuses are clear. The mastoid air cells are clear. No orbital pathology is seen. IMPRESSION: 1. No intracranial hemorrhage, mass, or acute infarct. 2. Minimal bilateral frontal lobe microvascular ischemia. 3. Right parietal subcortical white matter hemosiderin deposit due to prior hemorrhage. 04/06/2017 [facility] [place] Breast Mammo Scrn HUBER incl CAD [place] CLINICAL: V76.12 Routine/Screening. Current study was evaluated with a Computer Aided Detection (CAD) system. COMPARISON:Comparison is made to exams dated: 03/04/2015 mammogram, 01/10/2014 mammogram - [facility], and 10/14/2012 mammogram. TECHNIQUE: Mammographic views were obtained using digital acquisition. [employer] Version 1.3 was utilized for computer aided detection. FINDINGS: There are scattered fibroglandular densities in both breasts. Technologist indicates the exam is limited secondary to the patient's underlying prior shoulder injury/pain. Optimal positioning was not allowed. Best images obtained were submitted. Benign appearing densities are noted in both breasts. There is a benign appearing calcification and a nodule in the left breast. There also are benign appearing calcifications and nodules in the right breast. No significant masses, calcifications, or other findings are seen in either breast. There has been no significant interval change. IMPRESSION: BENIGN RECOMMENDATION:There is no mammographic evidence of malignancy. A 1 year screening mammogram is recommended.(03/29/2018) This exam was interpreted at [id number] for [facility]. Roshan louis/shirley:03/28/2017 13:55:49 Piping Design Specialist(s): Cookie Ceballos, [facility] letter sent: BI-RADS 1/2 Mammogram BI-RADS: 2 Benign 03/28/2017 [facility] Shoulder w contrast MRI MR ARTHROGRAM RIGHT SHOULDER HISTORY: Anterior subluxation of right humerus, Strain of muscle and tendon of the rotator cuff. Right shoulder pain and weakness to the right elbow for the past 6 weeks after a slip and fall at home. Shoulder popped on impact. Pain is superior and anterior. Abduction is most painful., Anterior shoulder dislocation on prior imaging. COMPARISON: Right shoulder radiography dated October 27, 2016 TECHNIQUE: Axial, oblique coronal, and oblique sagittal MR images of the shoulder after intra-articular contrast injection. FINDINGS: ROTATOR CUFF: 1. High-grade full-thickness complete or near-complete tear of the supraspinatus. Bulk of the supraspinatus tendon is retracted 3 cm. 2. Moderate to high-grade undersurface tear of the infraspinatus tendon at its insertion with proximal intrasubstance extension along the myotendinous junction. The tear involves at least half the tendon thickness. No definite full-thickness infraspinatus tear is identified. 3. The subscapularis is intact. 4. Rotator cuff muscle bulk is grossly preserved. 5. Free extravasation of intra-articular contrast into the subacromial space related to full-thickness rotator cuff tear. LABRUM AND BICEPS TENDON: 6. Evaluation of the superior labrum limited by volume averaging with adjacent retracted torn supraspinatus fibers. Suspect labral SLAP tear (coronal series 9 image 14). The anterior inferior labrum is intact without evidence of Bankart labral tear. 7. The biceps tendon is intact and located normally within the bicipital groove. OSSEOUS/ARTICULAR: 8. Mild acromioclavicular arthropathy without significant inferior spurring. 9. Glenohumeral joint cartilage grossly preserved. 10. Bone marrow signal is normal. No humeral head Hill-Sachs impaction fracture or osseous glenoid Bankart fracture is seen. IMPRESSION: 1. High-grade complete or near-complete tear of the supraspinatus insertion with several centimeters retraction of the bulk of the tendon. 2. Moderate to high-grade undersurface tear of the infraspinatus at its insertion with proximal intrasubstance extension of tear along the myotendinous junction. 3. Limited evaluation superior labrum demonstrates probable superior labral SLAP tear. 4. No Hill-Sachs fracture of the humeral head or Bankart fracture of the osseous glenoid. Thank you referring your patient to [facility]. SL: [id number] 12/13/2016 [facility] Shoulder arthrogram DX Patient Name: XOCHILT FLETCHER : 1955; Age: 61 years y/o Female MR: [id number] Study: Shoulder arthrogram DX 12/13/2016 8:54 AM CDT Ordering Physician: Venkatesh Smith MD Clinical Indication: - S43.011A Anterior subluxation of right humerus, initial encounter; Comparison: None CT total fluoroscopy time 42 seconds. Total fluoroscopy dose 22 mGy Right shoulder arthrogram, gadolinium injection prior to magnetic resonance imaging. Timeout performed prior to procedure. 20-gauge spinal needle used for access to the right shoulder joint with fluoroscopic guidance. Dilute gadolinium contrast within water-soluble nonionic contrast (14 mL total) injected into the right shoulder joint hard copy fluoroscopic image recorded. The arthrographic image demonstrates abnormal accumulation of contrast in the subacromial space suggesting rotator cuff tear. Please correlate with post arthrogram magnetic resonance imaging for more detailed anatomic data. SL: [id number] 12/13/2016 [facility] Shoulder series DX Patient Name: XOCHILT FLETCHER : 1955; Age: 61 years y/o Female MR: [id number] RIGHT SHOULDER, portable, 2 views History: Status post closed reduction of right glenohumeral dislocation. Technique: Frontal and transthoracic views of the right shoulder were obtained following reduction of the glenohumeral dislocation. The initial study performed today was reviewed. IMPRESSION: 1. Successful reduction of right glenohumeral dislocation. 2. No Hill-Sachs deformity or fracture is seen. 3. No significant degenerative changes or other osseous abnormalities. SL: [id number] 10/27/2016 [facility] Shoulder series DX PROCEDURE: Right shoulder and right humerus series. Clinical Indication: - Fall onto R shoulder. Comparison: None. FINDINGS: The right humeral head is positioned medial and caudal to the bony glenoid. There is no obvious fracture of the bony glenoid. There is a small lucency involving the right humeral head along the medial aspect which has a thin sclerotic rim. The distal humerus is intact. IMPRESSION: 1. Anterior dislocation of the right humeral head. 2. Question of a small Bankart lesion of the right humeral head as well. 10/27/2016 [facility] Humerus 2 views DX PROCEDURE: Right shoulder and right humerus series. Clinical Indication: - Fall onto R shoulder. Comparison: None. FINDINGS: The right humeral head is positioned medial and caudal to the bony glenoid. There is no obvious fracture of the bony glenoid. There is a small lucency involving the right humeral head along the medial aspect which has a thin sclerotic rim. The distal humerus is intact. IMPRESSION: 1. Anterior dislocation of the right humeral head. 2. Question of a small Bankart lesion of the right humeral head as well. 10/27/2016 [facility] Liver US Clinical Indication: elevated liver enzymes; Comparison: None TECHNIQUE: Grayscale and limited color sonographic evaluation of the right upper quadrant of the abdomen and gallbladder region was performed with standard technique. FINDINGS: LIVER: The visualized liver shows normal contour, size, and morphology with increased parenchymal echo texture. Hypoechoic structure adjacent to the gallbladder is most likely focal fatty sparing. BILE DUCTS: The intrahepatic and extrahepatic bile ducts are not dilated with the common bile duct measuring 5 mm. The distal common bile duct is not well seen. GALLBLADDER: There are no gallstones or gallbladder sludge. There is no pericholecystic fluid or wall thickening. PANCREAS: Not seen well ASCITES: There is no right upper quadrant abdominal ascites. IMPRESSION: Hepatic steatosis. SL: [id number] 06/30/2016 [facility] Digital Mammo Screening [facility] MA - DIGITAL MAMMO SCREENING HUBER MA BILATERAL DIGITAL SCREENING MAMMOGRAM WITH CAD: 03/04/2015 CLINICAL: Other Screening Mammogram. Current study was evaluated with a Computer Aided Detection (CAD) system. Comparison is made to exams dated: 01/10/2014 mammogram - [facility], 10/14/2012 mammogram and 11/09/2010 mammogram. There are scattered fibroglandular densities in both breasts. Patient complains of intermittent breast pain and/or tenderness. No suspicious mammographic correlate is present. There are benign appearing calcifications in the right breast. There also are benign appearing nodules in the right breast. Additionally there is a benign appearing calcification and a nodule in the left breast. No significant masses, calcifications, or other findings are seen in either breast. There has been no significant interval change. IMPRESSION: BENIGN Clinical management of the patient's breast complaints is recommended. There is no mammographic evidence of malignancy. A 1 year screening mammogram is recommended. Roshan louis/penrad:03/04/2015 13:36:19 Piping Design Specialist: Faina Mendiola, [facility] This exam was dictated and interpreted by [id number] for [facility]. letter sent: Normal exam Mammogram BI-RADS: 2 Benign 03/04/2015 [facility] Digital Mammo Screening [facility] MA - DIGITAL MAMMO SCREENING HUBER MA BILATERAL DIGITAL SCREENING MAMMOGRAM WITH CAD: 01/10/2014 CLINICAL: Routine. Current study was evaluated with a Computer Aided Detection (CAD) system. Comparison is made to exams dated: 10/14/2012 mammogram and 11/09/2010 mammogram. There are scattered fibroglandular densities in both breasts. There are benign appearing calcifications in the right breast. There also are benign appearing nodules in the right breast. Additionally there is a benign appearing calcification and a nodule in the left breast. No significant masses, calcifications, or other findings are seen in either breast. There has been no significant interval change. IMPRESSION: BENIGN There is no mammographic evidence of malignancy. A screening mammogram in one year is recommended. Rohsan Hernandez M.D. jt/penrad:01/13/2014 08:45:51 Piping Design Specialist: Shannan Guerrero, [facility] This exam was dictated and interpreted by [id number] for [facility]. letter sent: Normal exam Mammogram BI-RADS: 2 Benign 01/10/2014 [facility] Consultation Notes No Data Provided for This Section Discharge Summaries No Data Provided for This Section History and Physicals No Data Provided for This Section Vital Signs Vital Sign Value Date Comments Source Weight 60 09/25/2018 [facility] BMI Calculated 24.99 09/25/2018 [facility] Height 154.94 cm 09/25/2018 [facility] Temperature Oral (F) 98.1 F 09/25/2018 [facility] Respitory Rate 16 09/25/2018 [facility] Heart Rate 66 09/25/2018 [facility] Systolic (mm Hg) 136 09/25/2018 [facility] Diastolic (mm Hg) 84 09/25/2018 [facility] Systolic (mm Hg) 130 05/29/2018 [facility] Diastolic (mm Hg) 76 05/29/2018 [facility] Heart Rate 70 05/29/2018 [facility] Respitory Rate 16 05/29/2018 [facility] Temperature Oral (F) 97.2 F 05/29/2018 [facility] Height 154.94 cm 05/29/2018 [facility] Weight 60.568 05/29/2018 [facility] BMI Calculated 25.23 05/29/2018 [facility] Height 152.4 cm 02/27/2018 [facility] BMI Calculated 26.22 02/27/2018 [facility] Weight 60.909 02/27/2018 [facility] Temperature Oral (F) 97.9 F 02/27/2018 [facility] Heart Rate 70 02/27/2018 [facility] Respitory Rate 16 02/27/2018 [facility] Systolic (mm Hg) 138 02/27/2018 [facility] Diastolic (mm Hg) 82 02/27/2018 [facility] Weight 62.273 11/28/2017 [facility] BMI Calculated 25.11 11/28/2017 [facility] Height 157.48 cm 11/28/2017 [facility] Temperature Oral (F) 98.6 F 11/28/2017 [facility] Respitory Rate 16 11/28/2017 [facility] Heart Rate 78 11/28/2017 [facility] Systolic (mm Hg) 130 11/28/2017 [facility] Diastolic (mm Hg) 78 11/28/2017 [facility] Height 154.94 cm 08/29/2017 [facility] Weight 61.818 08/29/2017 [facility] BMI Calculated 25.75 08/29/2017 [facility] Respitory Rate 16 08/29/2017 [facility] Systolic (mm Hg) 135 08/29/2017 [facility] Diastolic (mm Hg) 83 08/29/2017 [facility] Heart Rate 74 08/29/2017 [facility] Temperature Oral (F) 97.1 F 08/29/2017 [facility] Heart Rate 83 05/30/2017 [facility] Systolic (mm Hg) 138 05/30/2017 [facility] Diastolic (mm Hg) 80 05/30/2017 [facility] Temperature Oral (F) 98.2 F 05/30/2017 [facility] Respitory Rate 16 05/30/2017 [facility] Height 154.94 cm 05/30/2017 [facility] BMI Calculated 25.75 05/30/2017 [facility] Weight 61.818 05/30/2017 [facility] Height 152.4 cm 03/07/2017 [facility] Weight 61.818 03/07/2017 [facility] BMI Calculated 26.62 03/07/2017 [facility] Respitory Rate 14 03/07/2017 [facility] Temperature Oral (F) 98.4 F 03/07/2017 [facility] Systolic (mm Hg) 135 03/07/2017 [facility] Diastolic (mm Hg) 84 03/07/2017 [facility] Heart Rate 80 03/07/2017 [facility] Respitory Rate 16 01/18/2017 [facility] Respitory Rate 15 01/18/2017 [facility] Systolic (mm Hg) 120 01/18/2017 [facility] Diastolic (mm Hg) 76 01/18/2017 [facility] Systolic (mm Hg) 126 01/18/2017 [facility] Diastolic (mm Hg) 75 01/18/2017 [facility] Respitory Rate 15 01/18/2017 [facility] Systolic (mm Hg) 109 01/18/2017 [facility] Diastolic (mm Hg) 79 01/18/2017 [facility] Weight 63.636 01/11/2017 [facility] Height 154.94 cm 01/11/2017 [facility] BMI Calculated 26.51 01/11/2017 [facility] Heart Rate 69 01/11/2017 [facility] Temperature Oral (F) 98.4 F 01/11/2017 [facility] Systolic (mm Hg) 107 10/27/2016 [facility] Diastolic (mm Hg) 53 10/27/2016 [facility] Temperature Oral (F) 98 F 10/27/2016 [facility] Respitory Rate 16 10/27/2016 [facility] Systolic (mm Hg) 122 10/27/2016 [facility] Diastolic (mm Hg) 63 10/27/2016 [facility] Respitory Rate 13 10/27/2016 [facility] Systolic (mm Hg) 134 10/27/2016 [facility] Diastolic (mm Hg) 62 10/27/2016 [facility] Respitory Rate 12 10/27/2016 [facility] Heart Rate 88 10/27/2016 [facility] Weight 62.273 10/27/2016 [facility] BMI Calculated 25.94 10/27/2016 [facility] Height 154.94 cm 10/27/2016 [facility] Heart Rate 97 10/27/2016 [facility] Temperature Oral (F) 97.9 F 10/27/2016 [facility] Height 61 10/09/2014 [facility] Weight 132.13 10/09/2014 [facility] Temperature Oral (F) 97.1 F 10/09/2014 [facility] Respitory Rate 14 10/09/2014 [facility] Heart Rate 60 10/09/2014 [facility] Systolic (mm Hg) 118 10/09/2014 [facility] Diastolic (mm Hg) 74 10/09/2014 [facility] Height 61 09/04/2014 [facility] Weight 133 09/04/2014 [facility] Systolic (mm Hg) 109 09/04/2014 [facility] Diastolic (mm Hg) 69 09/04/2014 [facility] Respitory Rate 16 09/04/2014 [facility] Heart Rate 69 09/04/2014 [facility] Temperature Oral (F) 98.3 F 09/04/2014 [facility] Weight 133 05/29/2014 [facility] Height 61 05/29/2014 [facility] Temperature Oral (F) 98.0 F 05/29/2014 [facility] Respitory Rate 16 05/29/2014 [facility] Heart Rate 64 05/29/2014 [facility] Systolic (mm Hg) 115 05/29/2014 [facility] Diastolic (mm Hg) 77 05/29/2014 [facility] Height 61 01/27/2014 [facility] Temperature Oral (F) 98.1 F 01/27/2014 [facility] Respitory Rate 14 01/27/2014 [facility] Heart Rate 62 01/27/2014 [facility] Systolic (mm Hg) 117 01/27/2014 [facility] Diastolic (mm Hg) 74 01/27/2014 [facility] Weight 129 01/27/2014 [facility] Weight 130 01/02/2014 [facility] Height 61 01/02/2014 [facility] Temperature Oral (F) 97.3 F 01/02/2014 [facility] Respitory Rate 14 01/02/2014 [facility] Systolic (mm Hg) 115 01/02/2014 [facility] Diastolic (mm Hg) 75 01/02/2014 [facility] Heart Rate 65 01/02/2014 [facility] Respitory Rate 12 07/29/2013 [facility] Weight 126 07/29/2013 [facility] Systolic (mm Hg) 116 07/29/2013 [facility] Diastolic (mm Hg) 72 07/29/2013 [facility] Heart Rate 61 07/29/2013 [facility] Weight 126 07/22/2013 [facility] Respitory Rate 12 07/22/2013 [facility] Systolic (mm Hg) 124 07/22/2013 [facility] Diastolic (mm Hg) 77 07/22/2013 [facility] Heart Rate 66 07/22/2013 [facility] Height 61 07/10/2013 [facility] Weight 128 07/10/2013 [facility] Temperature Oral (F) 97.6 F 07/10/2013 [facility] Heart Rate 71 07/10/2013 [facility] Systolic (mm Hg) 112 07/10/2013 [facility] Diastolic (mm Hg) 66 07/10/2013 [facility] Encounters Location Location Details Encounter Type Encounter Number Reason For Visit Attending Provider ADM Date DC Date Status Source [facility] Office Visit [id number] John Alcantara MD 07/10/2013 07/10/2013 Medical [facility] Office Visit [id number] John Alcantara MD 07/22/2013 07/22/2013 Medical [facility] [place] Lab Report [id number] John Alcantara MD 07/22/2013 07/22/2013 Medical [facility] [place] Lab Report [id number] John Alcantara MD 07/29/2013 07/29/2013 Medical [facility] Office Visit [id number] John Alcantara MD 07/29/2013 07/29/2013 Medical [facility] Office Visit [id number] John Alcantara MD 01/02/2014 01/02/2014 Medical [facility] Lab Report [id number] John Alcantara MD 01/02/2014 01/02/2014 Medical [facility] Outpatient [id number] John Alcantara 01/10/2014 01/11/2014 [facility] [place] Lab Report [id number] John Alcantara MD 01/12/2014 01/12/2014 Medical [facility] Office Visit [id number] John Alcantara MD 01/27/2014 01/27/2014 Medical [facility] Lab Report [id number] John Alcantara MD 02/27/2014 02/27/2014 Medical [facility] Lab Report [id number] John Alcantara MD 05/07/2014 05/07/2014 Medical [facility] Office Visit [id number] John Alcantara MD 05/29/2014 05/29/2014 [facility] Lab Report [id number] John Alcantara MD 09/04/2014 09/04/2014 [facility] Office Visit [id number] John Alcantara MD 09/04/2014 09/04/2014 [facility] Office Visit [id number] John Alcantara MD 10/09/2014 10/09/2014 Medical [facility] Outpatient [id number] NURSE VISIT 02/02/2015 Active [facility] Outpatient [id number] JOHN ALCANTARA 02/19/2015 [facility] Outpatient [id number] John Alcantara 03/04/2015 03/05/2015 [facility] Outpatient [id number] JOHN ALCANTARA 05/21/2015 Active [facility] Outpatient [id number] RITO BAILON 06/06/2016 Active [facility] Outpatient [id number] RITO BAILON 06/23/2016 [facility] Outpatient [id number] Rito Bailon 06/30/2016 07/01/2016 [facility] Outpatient [id number] RITO BAILON 09/20/2016 Active [facility] Outpatient [id number] RITO BAILON 10/26/2016 [facility] Emergency [id number] Kelley Clay 10/27/2016 10/27/2016 [facility] Outpatient [id number] Venkatesh Smith 12/13/2016 12/14/2016 [facility] Day Surgery [id number] Kush Mckeon 01/18/2017 01/18/2017 [facility] Outpatient [id number] RITO BAILON 02/27/2017 Active [facility] Outpatient [id number] RACHELE RAMIREZ 03/07/2017 Active [facility] Outpatient [id number] RACHELE RUDDH 03/07/2017 Active [facility] Ambulatory Pre-Reg [id number] Rachele Ramirez 03/07/2017 03/07/2017 [facility] Patients [id number] Kush Linda 03/07/2017 04/06/2017 [facility] Outpatient [id number] Rito Bailon 03/28/2017 03/29/2017 [facility] Di[facility] Services [id number] Suminela Mina 04/06/2017 04/07/2017 [facility] Patients [id number] Kush Linda 04/07/2017 05/07/2017 [facility] Patients [id number] Kush Linda 05/08/2017 06/07/2017 [facility] Outpatient [id number] RITO BAILON 05/30/2017 [facility] Outpatient [id number] Rito Bailon 05/30/2017 05/31/2017 [facility] Patients [id number] Kush Linda 06/07/2017 07/07/2017 [facility] Outpatient [id number] Rito Bailon 06/27/2017 06/27/2017 [facility] Phone Message [id number] 07/04/2017 07/06/2017 [facility] Patients [id number] Kush Linda 07/10/2017 08/09/2017 [facility] Phone Message [id number] 07/10/2017 07/12/2017 [facility] Patients [id number] Kush Linda 08/09/2017 09/08/2017 [facility] Outpatient [id number] RITO BAILON 08/29/2017 Active [facility] Outpatient [id number] Rito Bailon 08/29/2017 08/30/2017 [facility] Patients [id number] Kush Mckeon 09/20/2017 10/20/2017 [facility] Outpatient [id number] RITO ADAMARIS 11/28/2017 [facility] Outpatient [id number] Rito Adamaris 11/28/2017 11/29/2017 [facility] Outpatient [id number] Rito Adamaris 01/12/2018 01/13/2018 [facility] Outpatient [id number] RITO ADAMARIS 02/27/2018 [facility] Outpatient [id number] Rito Adamaris 02/27/2018 02/28/2018 [facility] Outpatient [id number] Rito Adamaris 05/02/2018 05/03/2018 [facility] Outpatient [id number] RITO ADAMARIS 05/29/2018 [facility] Outpatient [id number] Rito Adamaris 05/29/2018 05/30/2018 [facility] Outpatient [id number] Rito Adamaris 09/25/2018 Active [facility] Outpatient [id number] Rito Adamaris 09/25/2018 09/26/2018 [facility] Procedures Procedure Code Date Perfomer Comments Source Bone density scan<sup>1</sup> [id number] 05/02/2018 NORMAL [facility] Mammogram - screening<sup>2, 3</sup> [id number] 05/02/2018 There is no mammographic evidence of malignancy. A 1 year screening mammogram is recommended.(05/03/2019)There is no mammographic evidence of malignancy. A 1 year screening mammogram is recommended.(03/29/2018) [facility] Eye examination<sup>4</sup> [id number] 02/27/2018 Dr Green [facility] Mammogram - screening<sup>1</sup> [id number] 03/28/2017 There is no mammographic evidence of malignancy. A 1 year screening mammogram is recommended.(03/29/2018) [facility] Rotator cuff repair<sup>1</sup> [id number] 01/18/2017 right [facility] Rotator cuff repair<sup>2</sup> [id number] 01/18/2017 right arm [facility] Rotator cuff repair<sup>5</sup> [id number] 01/18/2017 right arm [facility] Mammogram - screening [id number] 03/24/2016 [facility], [facility] Colonoscopy<sup>1</sup> [id number] 09/23/2015 Dr Gerber Pending report [facility] Colonoscopy<sup>2</sup> [id number] 09/23/2015 Dr Gerber Pending report [facility], [facility] [place],[facility] Colonoscopy<sup>3</sup> [id number] 09/23/2015 Dr Gerber Pending report [facility] Colonoscopy<sup>6</sup> [id number] 09/23/2015 Dr Gerber Pending report [facility] Bone density scan [id number] 04/24/2015 [facility], [facility] [place],[facility] Eye examination [id number] 04/24/2015 [facility], [facility] [place],[facility] mammogram [id number] 01/13/2014 Completed at [facility] diabetic foot check [phone] 07/22/2013 yes [facility] Partial hysterectomy<sup>2</sup> [id number] 04/24/1993 due to DUB, was left with one ovary, 1993 [place] [place] Partial hysterectomy<sup>3</sup> [id number] 04/24/1993 due to DUB, was left with one ovary, 1993 [facility], [facility] [place] Partial hysterectomy<sup>4</sup> [id number] 04/24/1993 due to DUB, was left with one ovary, 1993 [facility] Partial hysterectomy<sup>7</sup> [id number] 04/24/1993 due to DUB, was left with one ovary, 1993 [facility] Excision of cyst of breast<sup>3</sup> [id number] right breast [facility] Excision of cyst of breast<sup>4</sup> [id number] right breast [facility], [facility] [place],[facility], [facility] [place] Excision of cyst of breast<sup>5</sup> [id number] right breast [facility] [place] Excision of cyst of breast<sup>2</sup> [id number] right breast [facility] Excision of cyst of breast<sup>8</sup> [id number] right breast [facility] Assessment and Plan No Data Provided for This Section Plan of Care No Data Provided for This Section Social History Social History Date Source Social History TypeResponse Alcohol Current, Frequency: 1-2 times per month. 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 Exercise Exercise duration: 30. Exercise frequency: 5-6 times/week. Exercise type: Walking. Substance Abuse Use: None. Smoking Status Never smoker; Exposure to Tobacco Smoke None; Cigarette Smoking Last 365 Days No; Reg Smoking Cessation Counseling No entered on: 09/25/18 01/11/2017 [facility] Social History TypeResponse Substance Abuse Use: None. Exercise Exercise duration: 30. Exercise frequency: 5-6 times/week. Exercise type: Walking. 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 Alcohol Current, Frequency: 1-2 times per month. Smoking Status Never smoker; Exposure to Tobacco Smoke None; Cigarette Smoking Last 365 Days No; Reg Smoking Cessation Counseling No entered on: 09/25/18 02/19/2015 [facility] Social History TypeResponse Substance Abuse Use: None. Exercise Exercise duration: 30. Exercise frequency: 5-6 times/week. Exercise type: Walking. 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 Alcohol Current, Frequency: 1-2 times per month. Smoking Status Never smoker; Exposure to Tobacco Smoke None; Cigarette Smoking Last 365 Days No; Reg Smoking Cessation Counseling No 02/19/2015 [facility] Social History TypeResponse Substance Abuse Use: None. Exercise Exercise duration: 30. Exercise frequency: 5-6 times/week. Exercise type: Walking. 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 Alcohol Current, Frequency: 1-2 times per month. Smoking Status Never smoker; Exposure to Tobacco Smoke None; Cigarette Smoking Last 365 Days No; Reg Smoking Cessation Counseling No entered on: 08/29/17 02/19/2015 IMM[facility] Serv[facility] Social History TypeResponse Substance Abuse Use: None. Exercise Exercise duration: 30. Exercise frequency: 5-6 times/week. Exercise type: Walking. 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 Alcohol Current, Frequency: 1-2 times per month. Smoking Status Never smoker; Exposure to Tobacco Smoke None; Cigarette Smoking Last 365 Days No; Reg Smoking Cessation Counseling No 02/19/2015 IMMANUEL Servin Family History No Data Provided for This Section Advance Directives No Data Provided for This Section Functional Status No Data Provided for This Section
--- OUTSIDE RECORDS SUMMARY | 2019-01-13 00:39 | XMS REPORT | Summary of Care ---
Author Author [facility] Address Unknown Phone Unavailable Encounter BROCK Solano(CORRINA) [id number] Date(s): 04/07/17 - 05/06/17 [facility] Discharge Disposition: Home or Self Care Attending Physician: Kush Mckeon MD Vital Signs No data available for [...] Comment: fluzone (quadrivalent) no preservative (>3 yrs.) [[id number]]. Migrated from [facility] ; Data migrated from [employer] on 11/28/2014. Procedures Procedure Date Related Diagnosis Body Site Status Rotator cuff repair1 01/18/17 Completed Mammogram - screening 03/24/16 Completed Colonoscopy2 09/2015 Completed Bone density scan 2016 Completed Eye examination 2015 Completed Partial hysterectomy3 1993 Completed Excision of cyst of breast4 Completed 1right arm 2Dr Buzz Pending report 3due to [facility], was left with one ovary, 1993 4right breast Social History Social History Type Response Substance Abuse Use: None. Exercise Exercise duration: 30. Exercise frequency: 5-6 times/week. Exercise type: Walking. 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 Alcohol Current, Frequency: 1-2 times per month. Smoking Status Never smoker; Exposure to Tobacco Smoke None; Cigarette Smoking Last 365 Days No; Reg Smoking Cessation Counseling No entered on: 03/07/17 Assessment and Plan No data available for this section
--- OUTSIDE RECORDS SUMMARY | 2019-01-13 00:39 | XMS REPORT | Summary of Care ---
Author Author [facility] Organization [facility] Address Unknown Phone Unavailable Encounter BROCK Solano(FIN) [id number] Date(s): 05/30/17 - 05/30/17 [facility] [address], [address] [place] [address]- [phone] Discharge Disposition: Home or Self Care Attending Physician: Syl Clayton MD Vital Signs Most recent to 1 oldest [Reference Range]: Height 154.94 cm (05/30/17 8:11 AM) Temperature Oral 98.2 DegF [96.4-99.1 DegF] (05/30/17 8:11 AM) Blood Pressure 138/80 mmHg [90-140/60-90 mmHg] (05/30/17 8:11 AM) Respiratory Rate 16 BRMIN [14-20 BRMIN] (05/30/17 8:11 AM) Peripheral Pulse 83 bpm Rate [60-100 bpm] (05/30/17 8:11 AM) Weight 61.818 kg (05/30/17 8:11 AM) Body Mass Index 25.75 m2 (05/30/17 8:11 AM) Problem List Condition Effective Dates Status Health Status Informant Anxiety Active disorder(Confirmed) Benign essential 07/10/13 Active hypertension(Confirm ed)1 Chronic 07/10/13 Active depression(Confirmed )2 Fatty Active liver(Confirmed) GERD Active (gastroesophageal reflux disease)(Confirmed) Generalized 09/04/14 Active osteoarthritis(Confi rmed)3 History of polyp of 09/04/14 Active colon4 S/P right rotator Active cuff repair(Confirmed) Hyperlipidemia(Confi Active rmed) Hyperlipidemia(Confi Active rmed) Hypomagnesemia5, 6 01/27/14 Active Mild cognitive Active impairment(Confirmed ) Overactive bladder7 10/09/14 Active Insomnia(Confirmed) Active Small vessel Active [...] Reaction Severity Status citalopram1 Active 1dizzy Medications citalopram 20 mg oral tablet 20 mg=1 tab, PO, Daily, # 30 tab, 1 Refill(s) Start Date: 05/30/17 Stop Date: 07/04/17 Status: Completed Results No data available for this section Immunizations Given and Recorded Vaccine Date Status Refusal Reason pneumococcal 13-valent vaccine1 02/27/17 Given influenza virus vaccine, inactivated 02/02/15 Given influenza virus vaccine, inactivated2 01/02/14 Given 1Result Comment: PATIENT WAITED IN ROOM TEN MINS NO ALLERGIC REACTION. 2Result Comment: fluzone (quadrivalent) no preservative (>3 yrs.) [[id number]]. Migrated from OBS ; Data migrated from [employer] on 11/28/2014. Procedures Procedure Date Related Diagnosis Body Site Status Mammogram - screening1 03/28/17 Completed Rotator cuff repair2 01/18/17 Completed Colonoscopy3 09/2015 Completed Bone density scan 2015 Completed Eye examination 2015 Completed Partial hysterectomy4 1993 Completed Excision of cyst of breast5 Completed 1There is no mammographic evidence of malignancy. A 1 year screening mammogram is recommended.(03/29/2018) 2right arm 3Dr Buzz Pending report 4due to DUB, was left with one ovary, 1993 5right breast Social History Social History Type Response Substance Abuse Use: None. Exercise Exercise duration: 30. Exercise frequency: 5-6 times/week. Exercise type: Walking. 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 Alcohol Current, Frequency: 1-2 times per month. Smoking Status Never smoker; Exposure to Tobacco Smoke None; Cigarette Smoking Last 365 Days No; Reg Smoking Cessation Counseling No entered on: 08/29/17 Assessment and Plan No data available for this section
--- OUTSIDE RECORDS SUMMARY | 2019-01-13 00:39 | XMS REPORT | Summary of Care ---
Author Author [facility] Organization [facility] Address Unknown Phone Unavailable Encounter BROCK Solano(CORRINA) [id number] Date(s): 06/27/17 - 06/27/17 [facility] [address] [place] [address]- Attending Physician: Syl Clayton MD Referring Physician: [...] Comment: fluzone (quadrivalent) no preservative (>3 yrs.) [[id number]]. Migrated from [employer] ; Data migrated from [employer] on 11/28/2014. Procedures Procedure Date Related Diagnosis [...] arm 3Dr Buzz Pending report 4[facility] to [facility], was left with one ovary, 1993 5right [...]
--- OUTSIDE RECORDS SUMMARY | 2019-01-13 00:39 | XMS REPORT | Summary of Care ---
Author Author [facility] Address Unknown Phone Unavailable Encounter BROCK Solano(CORRINA) [id number] Date(s): 06/07/17 - 07/06/17 [facility] Encounter Diagnosis Strain of muscle(s) and tendon(s) of the rotator cuff of right shoulder, subsequ ent encounter (Final) - 07/11/17 Anterior subluxation of right humerus, subsequent encounter (Final) - Superior glenoid labrum lesion of right shoulder, subsequent encounter (Final) - Pain in right shoulder (Final) - Stiffness of right shoulder, not elsewhere classified (Final) - Muscle weakness (generalized) (Final) - Localized edema (Final) - Abnormal posture (Final) - Limitation of activities due to disability (Final) - Other abnormalities of gait and mobility (Final) - Discharge Disposition: Home or Self Care Attending [...] Comment: fluzone (quadrivalent) no preservative (>3 yrs.) [[id number]]. Migrated from OBS ; Data migrated from [employer] on 11/28/2014. Procedures Procedure Date Related Diagnosis Body Site Status Mammogram - screening1 03/28/17 Completed Rotator cuff repair2 01/18/17 Completed Colonoscopy3 09/2015 Completed Bone density scan 2016 Completed Eye examination 2015 Completed Partial hysterectomy1993 Completed Excision of cyst of breast5 Completed [...]
--- OUTSIDE RECORDS SUMMARY | 2019-01-13 00:39 | XMS REPORT | Summary of Care ---
Author Author [facility] Address Unknown Phone Unavailable Encounter BROCK Solano(CORRINA) [id number] Date(s): 05/08/17 - 06/06/17 [facility] Encounter Diagnosis Strain of muscle(s) and tendon(s) of the rotator cuff of right shoulder, subsequ ent encounter (Final) - 06/10/17 Anterior subluxation of right humerus, subsequent encounter (Final) - Stiffness of right shoulder, not elsewhere classified (Final) - Pain in right shoulder (Final) - Abnormal posture (Final) - Limitation of activities due to disability (Final) - Discharge Disposition: Home or Self [...] Comment: fluzone (quadrivalent) no preservative (>3 yrs.) [[id number]]. Migrated from OBS ; Data migrated from [employer] on 11/28/2014. Procedures Procedure Date Related Diagnosis Body Site Status Mammogram - screening1 03/28/17 Completed Rotator cuff repair2 01/18/17 Completed Colonoscopy3 09/2015 Completed Bone density scan 2015 Completed Eye examination 2015 Completed Partial hysterectomy1993 Completed Excision of cyst of breast5 Completed 1There is no mammographic evidence of malignancy. A 1 year screening mammogram is recommended.(03/29/2018) 2right arm 3Dr Buzz Pending report 4due to [facility], was left with one ovary, 1993 5right [...]
--- OUTSIDE RECORDS SUMMARY | 2019-01-13 00:39 | XMS REPORT | Summary of Care ---
Author Author [facility] Organization [facility] Address Unknown Phone Unavailable Encounter BROCK Solano(FIN) [id number] Date(s): 07/10/17 - 07/11/17 [facility] [address], [address] [place] [address]- [phone] Vital Signs No data available for this [...] Reaction Severity Status citalopram1 Active 1dizzy Medications metFORMIN 500 mg oral tablet 500 mg=1 tab, PO, BID-Meals, # 180 tab, 1 Refill(s), Pharmacy: [id number] Start Date: 07/10/17 Stop Date: 08/29/17 Status: Discontinued Results No data available for this section Immunizations Given and Recorded Vaccine Date Status Refusal Reason pneumococcal 13-valent vaccine1 02/27/17 Given influenza virus vaccine, inactivated 02/02/15 Given influenza virus vaccine, inactivated2 01/02/14 Given 1Result Comment: PATIENT WAITED IN ROOM TEN MINS NO ALLERGIC REACTION. 2Result Comment: fluzone (quadrivalent) no preservative (>3 yrs.) [[id number]]. Migrated from [employer] ; Data migrated from [employer] on 11/28/2014. Procedures Procedure Date Related Diagnosis Body Site Status Mammogram - screening1 03/28/17 Completed Rotator cuff repair2 01/18/17 Completed Colonoscopy3 09/2015 Completed Bone density scan 2015 Completed Eye examination 2015 Completed Partial hysterectomy1993 Completed Excision of cyst of breast5 Completed 1There is no mammographic evidence of malignancy. A 1 year screening mammogram is recommended.(03/29/2018) 2right arm 3Dr Buzz Pending report 4due to [facility], was left with one ovary, 1993 [...]
--- OUTSIDE RECORDS SUMMARY | 2019-01-13 00:39 | XMS REPORT | Summary of Care ---
Author Author [facility] Organization [facility] Address Unknown Phone Unavailable Encounter BROCK Solano(FIN) [id number] Date(s): 07/04/17 - 07/05/17 [facility] [address], [address] [place] [address]- [phone] Vital Signs No data available for this [...] 1dizzy Medications citalopram 20 mg oral tablet See Instructions, # 30 tab, Refill(s) 4, TAKE ONE TABLET BY MOUTH ONCE DAILY, Ph armacy: [id number] Start Date: 07/04/17 Status: Ordered fenofibrate 130 mg oral capsule See Instructions, # 90 unknown unit, Refill(s) 1, TAKE ONE CAPSULE BY MOUTH ONCE DAILY, Pharmacy: [id number] Start Date: 07/04/17 Stop Date: 07/10/17 Status: Discontinued metFORMIN 500 mg oral tablet See Instructions, # 90 tab, Refill(s) 1, TAKE ONE TABLET BY MOUTH ONCE DAILY, Ph armacy: [id number] Start Date: 07/04/17 Stop Date: 08/29/17 Status: Discontinued Results No data available for this section Immunizations Given and Recorded Vaccine Date Status Refusal Reason pneumococcal 13-valent vaccine1 02/27/17 Given influenza virus vaccine, inactivated 02/02/15 Given influenza virus vaccine, inactivated2 01/02/14 Given 1Result Comment: PATIENT WAITED IN ROOM TEN MINS NO ALLERGIC REACTION. 2Result Comment: fluzone (quadrivalent) no preservative (>3 yrs.) [[id number]]. Migrated from [employer] ; Data migrated from [employer] on 11/28/2014. Procedures Procedure Date Related Diagnosis Body Site Status Mammogram - screening1 03/28/17 Completed Rotator cuff repair2 01/18/17 Completed Colonoscopy3 09/2015 Completed Bone density scan 2016 Completed Eye examination 2015 Completed Partial hysterectomy4 1993 Completed Excision of cyst of breast5 Completed 1There is no mammographic evidence of malignancy. A 1 year screening mammogram is recommended.(03/29/2018) 2right arm 3Dr Buzz Pending report 4due to [facility], was left with one ovary, 1993 5right [...]
--- OUTSIDE RECORDS SUMMARY | 2019-01-13 00:39 | XMS REPORT | Summary of Care ---
Author Author [facility] Organization [facility] Address Unknown Phone Unavailable Encounter BROCK Solano(CORRINA) [id number] Date(s): 04/06/17 - 04/06/17 [facility] [address] [place] [address]- [phone] Discharge Disposition: Home or Self Care Attending Physician: Sumi Mina MD Vital Signs No data available for [...] Comment: fluzone (quadrivalent) no preservative (>3 yrs.) [[id number]]. Migrated from [employer] ; Data migrated from [employer] on 11/28/2014. Procedures Procedure Date Related Diagnosis Body Site Rotator cuff repair1 01/18/17 Mammogram - screening 03/24/16 Colonoscopy2 09/2015 Bone density scan 2016 Eye examination 2015 Partial hysterectomy3 1993 Excision of cyst of breast4 1right arm 2Dr Buzz Pending report 3due to [facility], was left with one ovary, 1993 4right [...]
--- OUTSIDE RECORDS SUMMARY | 2019-01-13 00:39 | XMS REPORT | Summary of Care ---
Author Author [facility] Address Unknown Phone Unavailable Encounter BROCK Solano(CORRINA) [id number] Date(s): 04/07/17 - 05/06/17 [facility] Encounter Diagnosis Strain of muscle(s) and tendon(s) of the rotator cuff of right shoulder, subsequ ent encounter (Final) - 05/10/17 Anterior subluxation of right humerus, subsequent encounter (Final) - Superior glenoid labrum lesion of right shoulder, subsequent encounter (Final) - Pain in right shoulder (Final) - Stiffness of right shoulder, not elsewhere classified (Final) - Muscle weakness (generalized) (Final) - Localized edema (Final) - Limitation of activities due to disability (Final) - Abnormal posture (Final) - Other abnormalities of gait and [...] 6 01/27/14 Active Elevated liver Active enzymes(Confirmed) Mild cognitive Active impairment(Confirmed ) Overactive bladder7 [...] Comment: fluzone (quadrivalent) no preservative (>3 yrs.) [[id number]]. Migrated from OBS ; Data migrated from [...] Reg Smoking Cessation Counseling No entered on: 05/30/17 Assessment and Plan No data available for this section
--- OUTSIDE RECORDS SUMMARY | 2019-01-13 00:39 | XMS REPORT | Summary of Care ---
Author Author [facility] Organization [facility] Address Unknown Phone Unavailable Encounter BROCK Solano(FIN) [id number] Date(s): 05/30/17 - 05/30/17 [facility] [address], [address] [place] [address]- [phone] Discharge Disposition: Home or Self Care Attending [...] Comment: fluzone (quadrivalent) no preservative (>3 yrs.) [[id number]]. Migrated from OBS ; Data migrated from [...]
--- OUTSIDE RECORDS SUMMARY | 2019-01-13 00:39 | XMS REPORT | Summary of Care ---
Author Author [facility] Organization [facility] Address Unknown Phone Unavailable Encounter BROCK Solano(FIN) [id number] Date(s): 08/29/17 - 08/29/17 [facility] [address], [address] [place] [address]- [phone] Discharge Disposition: Home or Self Care Attending Physician: Syl Clayton MD Vital Signs Most recent to 1 oldest [Reference Range]: Height 154.94 cm (08/29/17 8:12 AM) Temperature Oral 97.1 DegF [96.4-99.1 DegF] (08/29/17 8:12 AM) Blood Pressure 135/83 mmHg [90-140/60-90 mmHg] (08/29/17 8:12 AM) Respiratory Rate 16 BRMIN [14-20 BRMIN] (08/29/17 8:12 AM) Peripheral Pulse 74 bpm Rate [60-100 bpm] (08/29/17 8:12 AM) Weight 61.818 kg (08/29/17 8:12 AM) Body Mass Index 25.75 m2 (08/29/17 8:12 AM) Problem List Condition Effective Dates Status [...] Reaction Severity Status citalopram1 Active 1dizzy Medications Aspirin Enteric Coated 81 mg oral delayed release tablet 81 mg=1 tab, PO, Daily, 0 Refill(s) Start Date: 08/29/17 Status: Ordered hydrochlorothiazide 12.5 mg oral tablet 12.5 mg=1 tab, PO, Daily, # 90 tab, 1 Refill(s), Pharmacy: [facility] [phone], [facility] [place] Start Date: 08/29/17 Status: Ordered lovastatin 10 mg oral tablet 10 mg=1 tab, PO, Bedtime, # 90 tab, 1 Refill(s), Pharmacy: [facility] [phone] Start Date: 08/29/17 Status: Ordered metFORMIN 500 mg oral tablet 500 mg=1 tab, PO, BID-Meals, # 180 tab, 1 Refill(s), Pharmacy: [id number] Start Date: 08/29/17 Status: Ordered tramadol 50 mg oral tablet 50 mg=1 tab, PO, Q6H, PRN Pain, # 40 tab, 0 Refill(s) Start Date: 08/29/17 Stop Date: 09/08/17 Status: Ordered Results No data available for this section Immunizations Given and Recorded Vaccine Date Status Refusal Reason pneumococcal 13-valent vaccine1 02/27/17 Given influenza virus vaccine, inactivated 02/02/15 Given influenza virus vaccine, inactivated2 01/02/14 Given 1Result Comment: PATIENT WAITED IN ROOM TEN MINS NO ALLERGIC REACTION. 2Result Comment: fluzone (quadrivalent) no preservative (>3 yrs.) [[id number]]. Migrated from [facility] ; Data migrated from [employer] on 11/28/2014. Procedures Procedure Date Related Diagnosis [...] arm 3Dr Buzz Pending report 4due to [facility], was left with one ovary, 1993 5right [...]
--- OUTSIDE RECORDS SUMMARY | 2019-01-13 00:39 | XMS REPORT | Summary of Care ---
Author Author [facility] Organization [facility] Address Unknown Phone Unavailable Encounter HQ [facility](FIN) [id number] Date(s): 01/12/18 - 01/12/18 [facility] [address] [place] [address]- Encounter Diagnosis Fatty (change of) liver, not elsewhere classified (Final) - 03/23/18 Discharge Disposition: Home or Self Care Attending [...] Comment: fluzone (quadrivalent) no preservative (>3 yrs.) [[id number]]. Migrated from [employer] ; Data migrated from [employer] on 11/28/2014. Procedures Procedure Date Related Diagnosis [...] arm 6Dr Buzz Pending report 7due to DUB, was left with one ovary, 1993 8right [...]
--- OUTSIDE RECORDS SUMMARY | 2019-01-13 00:39 | XMS REPORT | Summary of Care ---
Author Author [facility] Address Unknown Phone Unavailable Encounter BROCK Solano(FIN) [id number] Date(s): 07/10/17 - 08/08/17 [facility] Discharge Disposition: Home or Self Care Attending [...] Comment: fluzone (quadrivalent) no preservative (>3 yrs.) [[id number]]. Migrated from [employer] ; Data migrated from [employer] on 11/28/2014. Procedures Procedure Date Related Diagnosis [...] 3Dr Buzz Pending report 4due to [facility], was left with one ovary, [...]
--- OUTSIDE RECORDS SUMMARY | 2019-01-13 00:39 | XMS REPORT | Summary of Care ---
Author Author [facility] Address Unknown Phone Unavailable Encounter BROCK Solano(FIN) [id number] Date(s): 09/20/17 - 10/19/17 [facility] Discharge Disposition: Home or Self Care [...] Comment: fluzone (quadrivalent) no preservative (>3 yrs.) [[id number]]. Migrated from [employer] ; Data migrated from [employer] on 11/28/2014. Procedures Procedure Date Related Diagnosis [...] 3Dr Buzz Pending report 4due to [facility], was left with one ovary, 1993 [...]
--- OUTSIDE RECORDS SUMMARY | 2019-01-13 00:39 | XMS REPORT | Summary of Care ---
Author Author [facility] Address Unknown Phone Unavailable Encounter BROCK Solano(FIN) [id number] Date(s): 03/07/17 - 04/05/17 [facility] Discharge Disposition: Home or Self Care Attending [...] Comment: fluzone (quadrivalent) no preservative (>3 yrs.) [[id number]]. Migrated from [employer] ; Data migrated from [employer] on 11/28/2014. Procedures Procedure Date Related Diagnosis Body Site Rotator cuff repair1 01/18/17 Mammogram - screening 03/24/16 Colonoscopy2 09/2015 Bone density scan 2016 Eye examination 2015 Partial hysterectomy3 1993 Excision of cyst of breast4 1right arm 2Dr Buzz Pending report 3due to DUB, was left with one ovary, 1993 4right [...]
--- OUTSIDE RECORDS SUMMARY | 2019-01-13 00:39 | XMS REPORT | Summary of Care ---
Author Author [facility] Organization [facility] Address Unknown Phone Unavailable Encounter BROCK Solano(FIN) [id number] Date(s): 09/25/18 - 09/25/18 [facility] [address] [address] [place] [address]- Discharge Disposition: Home or Self Care Attending Physician: Syl Clayton MD Vital Signs Most recent to 1 oldest [Reference Range]: Height 154.94 cm (09/25/18 10:34 AM) Temperature Oral 98.1 DegF [96.4-99.1 DegF] (09/25/18 10:34 AM) Blood Pressure 136/84 mmHg [90-140/60-90 mmHg] (09/25/18 10:34 AM) Respiratory Rate 16 BRMIN [14-20 BRMIN] (09/25/18 10:34 AM) Peripheral Pulse 66 bpm Rate [60-100 bpm] (09/25/18 10:34 AM) Weight 60 kg (09/25/18 10:34 AM) Body Mass Index 24.99 m2 (09/25/18 10:34 AM) Problem List Condition Effective Dates Status [...] Centricity on 10/29/14. Allergies, Adverse Reactions, Alerts No Known Medication Allergies Medications citalopram 20 mg oral tablet =1 tab, PO, Daily, # 90 tab, 1 Refill(s), Pharmacy: [id number] Start Date: 09/25/18 Stop Date: 03/24/19 Status: Ordered hydrochlorothiazide 12.5 mg oral tablet =1 tab, PO, Daily, STOP LISINOPRIL., # 90 tab, 1 Refill(s), Pharmacy: [facility] Start Date: 09/25/18 Stop Date: 03/24/19 Status: Ordered lansoprazole 30 mg oral delayed release capsule See Instructions, TAKE ONE CAPSULE BY MOUTH ONCE DAILY, # 90 tab, 1 Refill(s), P harmacy: [facility] Start Date: 09/25/18 Status: Ordered lovastatin 10 mg oral tablet =1 tab, PO, Bedtime, # 90 tab, 1 Refill(s), Pharmacy: [facility] Start Date: 09/25/18 Status: Ordered metFORMIN 500 mg oral tablet 500 mg=1 tab, PO, BID-Meals, # 180 tab, 1 Refill(s), Pharmacy: [facility] Start Date: 09/25/18 Status: Ordered simethicone 125 mg oral tablet 125 mg=1 tab, PO, TID-After Meals, X 14 day, # 60 tab, 0 Refill(s), Pharmacy: [facility]244 Start Date: 09/25/18 Stop Date: 10/09/18 Status: Ordered trazodone 50 mg oral tablet 50 mg=1 tab, PO, Bedtime, PRN Insomnia, # 90 tab, 1 Refill(s), Pharmacy: [facility] Start Date: 09/25/18 Stop Date: 03/24/19 Status: Ordered Results No data available for this section Immunizations Given and Recorded Vaccine Date Status Refusal Reason pneumococcal 13-valent vaccine1 02/27/17 Given influenza virus vaccine, inactivated 02/02/15 Given influenza virus vaccine, inactivated2 01/02/14 Given 1Result Comment: PATIENT WAITED IN ROOM TEN MINS NO ALLERGIC REACTION. 2Result Comment: fluzone (quadrivalent) no preservative (>3 yrs.) [[id number]]. Migrated from [employer] ; Data migrated from [employer] on 11/28/2014. Procedures Procedure Date Related Diagnosis [...] arm 6Dr Buzz Pending report 7due to [facility], was left with one ovary, 1993 8right breast Social History Social History Type Response Substance Abuse Use: None. Exercise Exercise duration: 30. Exercise frequency: 5-6 times/week. Exercise type: Walking. 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 Alcohol Current, Frequency: 1-2 times per month. Smoking Status Never smoker; Exposure to Tobacco Smoke None; Cigarette Smoking Last 365 Days No; Reg Smoking Cessation Counseling No entered on: 09/25/18 Assessment and Plan No data available for this section
--- OUTSIDE RECORDS SUMMARY | 2019-01-13 00:39 | XMS REPORT | Summary of Care ---
Author Author [facility] Address Unknown Phone Unavailable Encounter BROCK Solano(FIN) [id number] Date(s): 08/09/17 - 09/07/17 [facility] Discharge Disposition: Home or Self Care Attending [...] Comment: fluzone (quadrivalent) no preservative (>3 yrs.) [[id number]]. Migrated from [employer] ; Data migrated from [employer] on 11/28/2014. Procedures Procedure Date Related Diagnosis Body Site Status Mammogram - screening1 03/28/17 Completed Rotator cuff repair2 01/18/17 Completed Colonoscopy3 09/2015 Completed Bone density scan 2015 Completed Eye examination 2015 Completed Partial hysterectomy1993 Completed Excision of cyst of breast5 Completed 1There is no mammographic evidence of malignancy. A 1 year screening mammogram is recommended.(03/29/2018) 2right arm 3Dr Buzz Pending report 4due to [facility], was left with one ovary, 1993 [...]
--- OUTSIDE RECORDS SUMMARY | 2019-01-13 00:40 | XMS REPORT | Summary of Care ---
Author Author [facility] Organization [facility] Address Unknown Phone Unavailable Encounter BROCK Solano(FIN) [id number] Date(s): 02/27/18 - 02/27/18 [facility] [address] [facility] [address] [place] [address]- Discharge Disposition: Home or Self Care Attending Physician: Syl Clayton MD Vital Signs Most recent to 1 oldest [Reference Range]: Height 152.4 cm (02/27/18 1:38 PM) Temperature Oral 97.9 DegF [96.4-99.1 DegF] (02/27/18 1:38 PM) Blood Pressure 138/82 mmHg [90-140/60-90 mmHg] (02/27/18 1:38 PM) Respiratory Rate 16 BRMIN [14-20 BRMIN] (02/27/18 1:38 PM) Peripheral Pulse 70 bpm Rate [60-100 bpm] (02/27/18 1:38 PM) Weight 60.909 kg (02/27/18 1:38 PM) Body Mass Index 26.22 m2 (02/27/18 1:38 PM) Problem List Condition Effective Dates Status [...] Reactions, Alerts No Known Medication Allergies Medications ciprofloxacin 500 mg oral tablet 500 mg=1 tab, PO, Q12H, for UTI, X 3 day, # 6 tab, 0 Refill(s), [facility] Start Date: 02/28/18 Stop Date: 03/03/18 Status: Completed Results No data available for this section Immunizations Given and Recorded Vaccine Date Status Refusal Reason pneumococcal 13-valent vaccine1 02/27/17 Given influenza virus vaccine, inactivated 02/02/15 Given influenza virus vaccine, inactivated2 01/02/14 Given 1Result Comment: PATIENT WAITED IN ROOM TEN MINS NO ALLERGIC REACTION. 2Result Comment: fluzone (quadrivalent) no preservative (>3 yrs.) [[id number]]. Migrated from OBS ; Data migrated from [...] arm 6Dr Buzz Pending report 7due to [facility], was left with one ovary, 1993 8right [...]
--- OUTSIDE RECORDS SUMMARY | 2019-01-13 00:40 | XMS REPORT | Continuity of Care Document ---
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 DIAB W/O COMP TYPE II/UNS NOT STATED UNCNTRL Jul 10, 2013 Active ESSENTIAL HYPERTENSION, BENIGN Jul 10, 2013 Active HYPERLIPIDEMIA Jul 10, 2013 Active DEPRESSION Jul 10, 2013 Active CONTACT DERMATITIS Jul 22, 2013 Active ROUTINE GENERAL MEDICAL EXAM@HEALTH CARE FACL Jul 22, 2013 Inactive POSTMENOPAUSAL STATUS Jul 22, 2013 Active VAGINITIS, ATROPHIC Jul 22, 2013 Active HORMONE REPLACEMENT THERAPY Jul 22, 2013 Active BODY MASS INDEX BETWEEN 19-24 ADULT Jul 22, 2013 Active DYSURIA Jul 29, 2013 Active CYSTITIS, ACUTE Jul 29, 2013 Active Procedures Date Description Comments Jul 10, 2013 smoking status never smoker Jul 22, 2013 smoking status never smoker Jul 22, 2013 diabetic foot check yes Medications Medication Instructions Start Date Status IBUPROFEN 400 MG TABS Take 1 tab by mouth three times daily as needed Jul 10, 2013 Active LISINOPRIL-HYDROCHLOROTHIAZIDE 10-12.5 MG TABS take 1 tab by mouth daily Jul 10, 2013 Active METFORMIN HCL 500 MG TABS take 1 tab by mouth twice daily Jul 10, 2013 Active OMEPRAZOLE 20 MG TBEC take 1 tab by mouth daily Jul 10, 2013 Active PROBIOTIC CAPS take 1 cap by mouth daily Jul 10, 2013 Active TRAZODONE HCL 50 MG TABS Take one tablet by mouth at bedtime as needed for insomnia. Jul 22, 2013 Active CITALOPRAM HYDROBROMIDE 10 MG TABS Take one tablet by mouth daily for 2 weeks. Then half a tablet daily for 2 weeks then discontinue. Jul 22, 2013 Active PREMARIN 0.3 MG TABS Take one tablet by mouth daily. Jul 22, 2013 Active LOVASTATIN 40 MG TABS Take one tablet by mouth at bedtime. Jul 29, 2013 Active BACTRIM DS 800-160 MG TABS Take one tablet by mouth twice daily for 3 days. Jul 29, 2013 Inactive PYRIDIUM 200 MG TABS Take one tablet by mouth three times a day for 2 days. Jul 29, 2013 Inactive Vital Signs Date Description Test Result Jul 10, 2013 height E&M - 8302-2 HEIGHT 61 in Jul 10, 2013 weight E&M - 3141-9 WEIGHT 128 lb Jul 10, 2013 temperature E&M TEMPERATURE 97.6 deg f Jul 10, 2013 pulse rate E&M - 8867-4 PULSE RATE 71 /min Jul 10, 2013 blood pressure, systolic - 8480-6 BP SYSTOLIC 112 mm Hg Jul 10, 2013 blood pressure, diastolic - 8462-4 BP DIASTOLIC 66 mm Hg Jul 22, 2013 weight E&M - 3141-9 WEIGHT 126 lb Jul 22, 2013 respiratory rate E&M - 9279-1 RESP RATE 12 /min Jul 22, 2013 blood pressure, systolic - 8480-6 BP SYSTOLIC 124 mm Hg Jul 22, 2013 blood pressure, diastolic - 8462-4 BP DIASTOLIC 77 mm Hg Jul 22, 2013 pulse rate E&M - 8867-4 PULSE RATE 66 /min Jul 29, 2013 respiratory rate E&M - 9279-1 RESP RATE 12 /min Jul 29, 2013 weight E&M - 3141-9 WEIGHT 126 lb Jul 29, 2013 blood pressure, systolic - 8480-6 BP SYSTOLIC 116 mm Hg Jul 29, 2013 blood pressure, diastolic - 8462-4 BP DIASTOLIC 72 mm Hg Jul 29, 2013 pulse rate E&M - 8867-4 PULSE RATE 61 /min Results Date Description Test Name Value Reference Interpretation Status Jul 22, 2013 hemoglobin, blood HGB 14.2 g/dL 12.0-16.0 Jul 22, 2013 hematocrit, blood HCT 42.3 % 36.0-48.0 Jul 22, 2013 platelet count PLATELETS 198 K/CMM /mm3 133-450 Jul 22, 2013 hemoglobin, blood HGB 14.2 g/dL 12.0-16.0 Jul 22, 2013 hematocrit, blood HCT 42.3 % 36.0-48.0 Jul 22, 2013 platelet count PLATELETS 198 K/CMM /mm3 133-450 Jul 22, 2013 hemoglobin, blood HGB 14.2 g/dL 12.0-16.0 Jul 22, 2013 hematocrit, blood HCT 42.3 % 36.0-48.0 Jul 22, 2013 platelet count PLATELETS 198 K/CMM /mm3 133-450 Jul 22, 2013 hemoglobin, blood HGB 14.2 g/dL 12.0-16.0 Jul 22, 2013 hematocrit, blood HCT 42.3 % 36.0-48.0 Jul 22, 2013 platelet count PLATELETS 198 K/CMM /mm3 133-450 Jul 29, 2013 urine color UA COLOR [place] null Yellow Abnormal Jul 29, 2013 bacteria, urine microscopy BACTERIA URN Moderate null None Seen Abnormal Jul 22, 2013 hemoglobin A1C, blood, as % of total hemoglobin HGBA1C 6.0 % <=5.6 High Jul 22, 2013 thyroid stimulating hormone, serum TSH 0.741 uIU/mL 0.360-3.740 Jul 22, 2013 cholesterol, serum CHOLESTEROL 207 mg/dl <=199 High Jul 22, 2013 triglyceride, serum, fasting TRIGLYCERIDE 104 mg/dl <=149 Jul 22, 2013 HDL cholesterol, serum HDL 51 mg/dl >=61 Low Jul 22, 2013 sodium, serum SODIUM 142 MEQ/L mmol/L 135-145 Jul 22, 2013 potassium, serum POTASSIUM 4.1 MEQ/L mmol/L 3.5-5.1 Jul 22, 2013 creatinine, serum CREATININE 0.5 mg/dL 0.5-1.4 Jul 22, 2013 urea nitrogen, blood BUN 14 mg/dL 7-22 Jul 22, 2013 urea nitrogen/creatinine ratio, serum BUN/CREAT 28 null 6-25 High Jul 22, 2013 albumin, serum ALBUMIN 4.5 g/dL 3.5-5.0 Jul 22, 2013 calcium, serum CALCIUM 10.0 mg/dL 8.5-10.5 Jul 22, 2013 alanine aminotransferase (SGPT), serum SGPT (ALT) 22 U/L 0-65 Jul 22, 2013 aspartate aminotransferase (SGOT), serum SGOT (AST) 15 U/L 0-37 Jul 22, 2013 alkaline phosphatase, serum ALK PHOS 75 U/L 39-136 Jul 22, 2013 hemoglobin A1C, blood, as % of total hemoglobin HGBA1C 6.0 % <=5.6 High Jul 22, 2013 thyroid stimulating hormone, serum TSH 0.741 uIU/mL 0.360-3.740 Jul 22, 2013 cholesterol, serum CHOLESTEROL 207 mg/dl <=199 High Jul 22, 2013 triglyceride, serum, fasting TRIGLYCERIDE 104 mg/dl <=149 Jul 22, 2013 HDL cholesterol, serum HDL 51 mg/dl >=61 Low Jul 22, 2013 sodium, serum SODIUM 142 MEQ/L mmol/L 135-145 Jul 22, 2013 potassium, serum POTASSIUM 4.1 MEQ/L mmol/L 3.5-5.1 Jul 22, 2013 creatinine, serum CREATININE 0.5 mg/dL 0.5-1.4 Jul 22, 2013 urea nitrogen, blood BUN 14 mg/dL 7-Jul 22, 2013 urea nitrogen/creatinine ratio, serum BUN/CREAT 28 null 6-25 Jul 22, 2013 albumin, serum ALBUMIN 4.5 g/dL 3.5-5.0 Jul 22, 2013 calcium, serum CALCIUM 10.0 mg/dL 8.5-10.5 Jul 22, 2013 alanine aminotransferase (SGPT), serum SGPT (ALT) 22 U/L 0-65 Jul 22, 2013 aspartate aminotransferase (SGOT), serum SGOT (AST) 15 U/L 0-37 Jul 22, 2013 alkaline phosphatase, serum ALK PHOS 75 U/L 39-136 Jul 22, 2013 hemoglobin A1C, blood, as % of total hemoglobin HGBA1C 6.0 % <=5.6 High Jul 22, 2013 thyroid stimulating hormone, serum TSH 0.741 uIU/mL 0.360-3.740 Jul 22, 2013 cholesterol, serum CHOLESTEROL 207 mg/dl <=199 High Jul 22, 2013 triglyceride, serum, fasting TRIGLYCERIDE 104 mg/dl <=149 Jul 22, 2013 HDL cholesterol, serum HDL 51 mg/dl >=61 Low Jul 22, 2013 LDL cholesterol, serum LDL 135 mg/dl <=99 High Jul 22, 2013 sodium, serum SODIUM 142 MEQ/L mmol/L 135-145 Jul 22, 2013 potassium, serum POTASSIUM 4.1 MEQ/L mmol/L 3.5-5.1 Jul 22, 2013 creatinine, serum CREATININE 0.5 mg/dL 0.5-1.4 Jul 22, 2013 urea nitrogen, blood BUN 14 mg/dL 7-Jul 22, 2013 urea nitrogen/creatinine ratio, serum BUN/CREAT 28 null 6-25 High Jul 22, 2013 albumin, serum ALBUMIN 4.5 g/dL 3.5-5.0 Jul 22, 2013 calcium, serum CALCIUM 10.0 mg/dL 8.5-10.5 Jul 22, 2013 alanine aminotransferase (SGPT), serum SGPT (ALT) 22 U/L 0-65 Jul 22, 2013 aspartate aminotransferase (SGOT), serum SGOT (AST) 15 U/L 0-37 Jul 22, 2013 alkaline phosphatase, serum ALK PHOS 75 U/L 39-136 Jul 22, 2013 hemoglobin A1C, blood, as % of total hemoglobin HGBA1C 6.0 % <=5.6 High Jul 22, 2013 thyroid stimulating hormone, serum TSH 0.741 uIU/mL 0.360-3.740 Jul 22, 2013 cholesterol, serum CHOLESTEROL 207 mg/dl <=199 High Jul 22, 2013 triglyceride, serum, fasting TRIGLYCERIDE 104 mg/dl <=149 Jul 22, 2013 HDL cholesterol, serum HDL 51 mg/dl >=61 Low Jul 22, 2013 LDL cholesterol, serum LDL 135 mg/dl <=99 High Jul 22, 2013 sodium, serum SODIUM 142 MEQ/L mmol/L 135-145 Jul 22, 2013 potassium, serum POTASSIUM 4.1 MEQ/L mmol/L 3.5-5.1 Jul 22, 2013 creatinine, serum CREATININE 0.5 mg/dL 0.5-1.4 Jul 22, 2013 urea nitrogen, blood BUN 14 mg/dL 7-Jul 22, 2013 urea nitrogen/creatinine ratio, serum BUN/CREAT 28 null 6-25 High Jul 22, 2013 albumin, serum ALBUMIN 4.5 g/dL 3.5-5.0 Jul 22, 2013 calcium, serum CALCIUM 10.0 mg/dL 8.5-10.5 Jul 22, 2013 alanine aminotransferase (SGPT), serum SGPT (ALT) 22 U/L 0-65 Jul 22, 2013 aspartate aminotransferase (SGOT), serum SGOT (AST) 15 U/L 0-37 Jul 22, 2013 alkaline phosphatase, serum ALK PHOS 75 U/L 39-136
--- OUTSIDE RECORDS SUMMARY | 2019-01-13 00:40 | XMS REPORT | Summary of Care ---
Author Author [facility] Organization [facility] Address Unknown Phone Unavailable Encounter BROCK Solano(FIN) [id number] Date(s): 05/29/18 - 05/29/18 [facility] [address], [address] [place] [address]- [phone] Discharge Disposition: Home or Self Care Attending Physician: Syl Clayton MD Vital Signs Most recent to 1 oldest [Reference Range]: Height 154.94 cm (05/29/18 10:29 AM) Temperature Oral 97.2 DegF [96.4-99.1 DegF] (05/29/18 10:29 AM) Blood Pressure 130/76 mmHg [90-140/60-90 mmHg] (05/29/18 10:29 AM) Respiratory Rate 16 BRMIN [14-20 BRMIN] (05/29/18 10:29 AM) Peripheral Pulse 70 bpm Rate [60-100 bpm] (05/29/18 10:29 AM) Weight 60.568 kg (05/29/18 10:29 AM) Body Mass Index 25.23 m2 (05/29/18 10:29 AM) Problem List Condition Effective Dates Status [...] day, # 60 gm, 1 Refill(s), [facility] Start Date: 05/29/18 Stop Date: 06/26/18 Status: Ordered Results No data available for this section Immunizations Given and Recorded Vaccine Date Status Refusal Reason pneumococcal 13-valent vaccine1 02/27/17 Given influenza virus vaccine, inactivated 02/02/15 Given influenza virus vaccine, inactivated2 01/02/14 Given 1Result Comment: PATIENT WAITED IN ROOM TEN MINS NO ALLERGIC REACTION. 2Result Comment: fluzone (quadrivalent) no preservative (>3 yrs.) [[id number]]. Migrated from OBS ; Data migrated from [...] arm 6Dr Buzz Pending report 7due to [facility], was left with one ovary, [...]
--- OUTSIDE RECORDS SUMMARY | 2019-01-13 00:40 | XMS REPORT | Continuity of Care Document ---
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, 2013 Active DIAB W/O COMP TYPE II/UNS NOT STATED UNCNTRL Jul 10, 2013 Active ESSENTIAL HYPERTENSION, BENIGN Jul 10, 2013 Active HYPERLIPIDEMIA Jul 10, 2013 Active DEPRESSION Jul 10, 2013 Active CONTACT DERMATITIS Jul 22, 2013 Active ROUTINE GENERAL MEDICAL EXAM@HEALTH CARE FACL Jul 22, 2013 Active POSTMENOPAUSAL STATUS Jul 22, 2013 Active VAGINITIS, ATROPHIC Jul 22, 2013 Active HORMONE REPLACEMENT THERAPY Jul 22, 2013 Active BODY MASS INDEX BETWEEN 19-24 ADULT Jul 22, 2013 Active Procedures Date Description Comments Jul [...] by mouth daily Jul 10, 2013 Active LOVASTATIN 20 MG TABS take 1 tab by mouth daily at bedtime Jul 10, 2013 Active METFORMIN HCL 500 [...] by mouth daily. Jul 22, 2013 Active Vital Signs Date Description Test Result Jul [...] E&M - 8867-4 PULSE RATE 66 /min Results Date Description Test Name Value [...] 198 K/CMM /mm3 133-450 Jul 22, 2013 hemoglobin A1C, blood, as [...] 2013 urea nitrogen, blood BUN 14 mg/dL 11-12Jul 22, 2013 urea nitrogen/creatinine ratio, serum BUN/CREAT [...] 2013 urea nitrogen, blood BUN 14 mg/dL 11-12Jul 22, 2013 urea nitrogen/creatinine ratio, serum BUN/CREAT [...]
--- OUTSIDE RECORDS SUMMARY | 2019-01-13 00:40 | XMS REPORT | Continuity of Care Document ---
Author Author [facility] Organization [facility] Address Unknown Phone Unavailable Care Team Providers Care Basic Sciences Professor Name Role Phone MD Char, Petty LANE Unavailable Insurance Providers Payer name Policy type / Coverage type Policy ID Covered green party ID Policy Moe HUMANA - GOLD CHOICE (MEDICARE REPLACEMENT H Encounters Encounter Performer Location Date Office Visit Petty Pardo MD [facility] Jul 22, 2013 Problems Problem Effective Dates [...]
--- OUTSIDE RECORDS SUMMARY | 2019-01-13 00:40 | XMS REPORT | Continuity of Care Document ---
Author Author [facility] Organization [facility] Address Unknown Phone Unavailable Care Team Providers Care Coin Machine Supervisor Name Role Phone MD Char, Petty PP Unavailable Insurance Providers Payer name Policy type / Coverage type Policy ID Covered constitution party ID Policy Moe HUMANA - GOLD CHOICE (MEDICARE REPLACEMENT H Encounters Encounter Performer Location Date Office Visit Petty Pardo MD 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, 2013 Active DIABETES MELLITUS Jul 10, 2013 Active HYPERTENSION, BENIGN Jul 10, 2013 Active HYPERLIPIDEMIA Jul 10, 2013 Active ANXIETY DEPRESSION Jul 10, 2013 Active Procedures Date Description Comments Jul 10, 2013 smoking status never smoker Medications Medication Instructions Start Date Status IBUPROFEN 400 MG TABS Take 1 tab by mouth three times daily as needed Jul 10, 2013 Active TRAZODONE HCL 50 MG TABS take 1 tab by mouth daily at night Jul 10, 2013 Active LISINOPRIL-HYDROCHLOROTHIAZIDE 10-12.5 MG TABS take 1 tab by mouth daily Jul 10, 2013 Active LOVASTATIN 20 MG TABS take 1 tab by mouth daily at bedtime Jul 10, 2013 Active METFORMIN HCL 500 MG TABS take 1 tab by mouth twice daily Jul 10, 2013 Active CITALOPRAM HYDROBROMIDE 20 MG TABS take 1 tab by mouth daily Jul 10, 2013 Active OMEPRAZOLE 20 MG TBEC take 1 tab by mouth daily Jul 10, 2013 Active PROBIOTIC CAPS take 1 cap by mouth daily Jul 10, 2013 Active Vital Signs Date Description Test [...]
--- OUTSIDE RECORDS SUMMARY | 2019-01-13 00:40 | XMS REPORT | Continuity of Care Document ---
Author Author [facility] Organization [facility] Address Unknown Phone Unavailable Care Team Providers Care Drawing Kiln Supervisor Name Role Phone MD Char, Petty LANE Unavailable Insurance Providers Payer name Policy type / Coverage type Policy ID Covered green party ID Policy Moe HUMANA - GOLD CHOICE (MEDICARE REPLACEMENT H Encounters Encounter Performer Location Date Lab Report Petty Pardo MD [facility] Jan 02, 2014 Problems Problem Effective Dates Problem Status URTICARIA [...] 22, 2013 Active DYSURIA Jul 29, 2013 Inactive CYSTITIS, ACUTE Jul 29, 2013 Inactive LEG CRAMPS Jan 02, 2014 Active NEED FOR PROPHYLACTIC VACCINATION AND INOCULATION AGAINST INFLUENZA Jan 02, 2014 Active BREAST SCREENING, UNSPECIFIED Jan 02, 2014 Active Procedures Date Description Comments Jul 10, 2013 smoking status never smoker Jul 22, 2013 smoking status never smoker Jul 22, 2013 diabetic foot check yes Jan 02, 2014 smoking status Never smoker Medications Medication Instructions Start Date Status IBUPROFEN 400 MG TABS Take 1 tab by mouth three times daily as needed Jul 10, 2013 Active LISINOPRIL-HYDROCHLOROTHIAZIDE 10-12.5 MG TABS take 1 tab by mouth daily Jul 10, 2013 Active METFORMIN HCL 500 MG TABS take 1 tab by mouth twice daily Jul 10, 2013 Active PROBIOTIC CAPS [...] for 2 days. Jul 29, 2013 Inactive ALLERGY RELIEF Take one tablet by mouth daily. Jan 02, 2014 Active POTASSIUM 99MG Take one tablet by mouth daily. Jan 02, 2014 Active LANSOPRAZOLE 30 MG CPDR Take one tablet by mouth daily. Jul 10, 2013 Active Immunizations Vaccine Date Status influenza immunization (Flu Vax) has been administered Jan 02, 2014 completed Vital Signs Date Description Test Result Jul [...] E&M - 8867-4 PULSE RATE 61 /min Jan 02, 2014 weight E&M - 3141-9 WEIGHT 130 lb Jan 02, 2014 height E&M - 8302-2 HEIGHT 61 in Jan 02, 2014 temperature E&M TEMPERATURE 97.3 deg f Jan 02, 2014 respiratory rate E&M - 9279-1 RESP RATE 14 /min Jan 02, 2014 blood pressure, systolic - 8480-6 BP SYSTOLIC 115 mm Hg Jan 02, 2014 blood pressure, diastolic - 8462-4 BP DIASTOLIC 75 mm Hg Jan 02, 2014 pulse rate E&M - 8867-4 PULSE RATE 65 /min Results Date Description Test Name Value [...] platelet count PLATELETS 198 K/CMM /mm3 133-450 Jan 02, 2014 hemoglobin, blood HGB 14.6 g/dL 12.0-16.0 Jan 02, 2014 hematocrit, blood HCT 42.7 % 36.0-48.0 Jan 02, 2014 platelet count PLATELETS 201 K/CMM /mm3 133-450 Jul 29, 2013 urine color UA COLOR [place] null Yellow Abnormal Jul 29, 2013 bacteria, [...] of total hemoglobin HGBA1C 6.0 % <=5.6 Jul 22, 2013 thyroid stimulating hormone, serum [...] phosphatase, serum ALK PHOS 75 U/L 39-136 Jan 02, 2014 hemoglobin A1C, blood, as % of total hemoglobin HGBA1C 5.9 % <=5.6 High Jan 02, 2014 thyroid stimulating hormone, serum TSH 1.060 uIU/mL 0.360-3.740 Jan 02, 2014 cholesterol, serum CHOLESTEROL 143 mg/dl <=199 Jan 02, 2014 triglyceride, serum, fasting TRIGLYCERIDE 217 mg/dl <=149 High Jan 02, 2014 HDL cholesterol, serum HDL 42 mg/dl >=61 Low Jan 02, 2014 LDL cholesterol, serum LDL 58 mg/dl <=99 Jan 02, 2014 magnesium, serum MAGNESIUM 1.6 mg/dL 1.8-2.4 Low Jan 02, 2014 sodium, serum SODIUM 140 MEQ/L mmol/L 135-145 Jan 02, 2014 potassium, serum POTASSIUM 4.0 MEQ/L mmol/L 3.5-5.1 Jan 02, 2014 creatinine, serum CREATININE 0.4 mg/dL 0.5-1.4 Low Jan 02, 2014 urea nitrogen, blood BUN 11 mg/dL 7-Jan 02, 2014 urea nitrogen/creatinine ratio, serum BUN/CREAT 28 null 6-25 High Jan 02, 2014 albumin, serum ALBUMIN 4.2 g/dL 3.5-5.0 Jan 02, 2014 calcium, serum CALCIUM 9.8 mg/dL 8.5-10.5 Jan 02, 2014 alanine aminotransferase (SGPT), serum SGPT (ALT) 37 U/L 0-65 Jan 02, 2014 aspartate aminotransferase (SGOT), serum SGOT (AST) 27 U/L 0-37 Jan 02, 2014 alkaline phosphatase, serum ALK PHOS 70 U/L 39-136
--- OUTSIDE RECORDS SUMMARY | 2019-01-13 00:40 | XMS REPORT | Continuity of Care Document ---
Author Author [facility] Organization [facility] Address Unknown Phone Unavailable Care Team Providers Care Mine Inspector Name Role Phone MD Char, Petty LANE Unavailable Insurance Providers Payer name Policy type / Coverage type Policy ID Covered constitution party ID Policy Moe HUMANA - GOLD CHOICE (MEDICARE REPLACEMENT H Encounters Encounter Performer Location Date Lab Report Petty Pardo MD [facility] Jan 12, 2014 Problems Problem Effective Dates Problem Status [...] Jul 29, 2013 urine color UA COLOR [place] null Yellow Abnormal Jul 29, 2013 bacteria, [...]
--- OUTSIDE RECORDS SUMMARY | 2019-01-13 00:40 | XMS REPORT | Continuity of Care Document ---
Author Author [facility] Organization [facility] Address Unknown Phone Unavailable Care Team Providers Care Residential Sales Executive Name Role Phone MD Char, Petty LANE Unavailable Insurance Providers Payer name Policy type / Coverage type Policy ID Covered democrat ID Policy Moe HUMANA - GOLD CHOICE (MEDICARE REPLACEMENT H Encounters Encounter Performer Location Date Office Visit Petty Pardo MD [facility] Jul 29, 2013 Problems Problem Effective Dates [...] daily for 3 days. Jul 29, 2013 Active PYRIDIUM 200 MG TABS Take one tablet by mouth three times a day for 2 days. Jul 29, 2013 Active Vital Signs Date Description Test [...] urea nitrogen/creatinine ratio, serum BUN/CREAT 28 null - High Jul 22, 2013 albumin, serum ALBUMIN [...] 2013 urea nitrogen, blood BUN 14 mg/dL -Jul 22, 2013 urea nitrogen/creatinine ratio, serum BUN/CREAT 28 null - High Jul 22, 2013 albumin, serum ALBUMIN [...]
--- OUTSIDE RECORDS SUMMARY | 2019-01-13 00:40 | XMS REPORT | Continuity of Care Document ---
Author Author [facility] Organization [facility] Address Unknown Phone Unavailable Care Team Providers Care Pipe Coremaker Name Role Phone MD Char, Petty ALNE Unavailable Insurance Providers Payer name Policy type / Coverage type Policy ID Covered libertarian ID Policy Moe HUMANA - GOLD CHOICE (MEDICARE REPLACEMENT H Encounters Encounter Performer Location Date Office Visit Petty Pardo MD [facility] Jan 02, 2014 Problems [...] Jul 29, 2013 urine color UA COLOR [place] null Yellow Abnormal Jul 29, 2013 bacteria, [...] LDL cholesterol, serum LDL 135 mg/dl <=99 Jul 22, 2013 sodium, serum SODIUM 142 [...]
--- OUTSIDE RECORDS SUMMARY | 2019-01-13 00:40 | XMS REPORT | Summary of Care ---
Author Author [facility] Organization [facility] Address Unknown Phone Unavailable Encounter HQ Russ(FIN) [id number] Date(s): 05/02/18 - 05/02/18 [facility] [address] [place] [address]- Encounter Diagnosis Encounter for screening mammogram for malignant neoplasm of breast (Final) - 05/07/18 Age-related osteoporosis without current pathological fracture (Final) - Discharge Disposition: Home or Self [...] Reactions, Alerts No Known Medication Allergies Medications No data available for this section Results No data available for this section Immunizations Given and Recorded Vaccine Date Status Refusal Reason pneumococcal 13-valent vaccine1 02/27/17 Given influenza virus vaccine, inactivated 02/02/15 Given influenza virus vaccine, inactivated2 01/02/14 Given 1Result Comment: PATIENT WAITED IN ROOM TEN MINS NO ALLERGIC REACTION. 2Result Comment: fluzone (quadrivalent) no preservative (>3 yrs.) [[id number]]. Migrated from [employer] ; Data migrated from Mixers on 11/28/2014. Procedures Procedure Date Related Diagnosis [...] Buzz Pending report 7due to [facility], was left with one ovary, 1993 8right [...]
--- OUTSIDE RECORDS SUMMARY | 2019-01-13 00:40 | XMS REPORT | Summary of Care ---
Author Author [facility] Organization [facility] Address Unknown Phone Unavailable Encounter BROCK Solano(FIN) [id number] Date(s): 05/29/18 - 05/29/18 [facility] [address] [place] [address]- Discharge Disposition: Home or Self Care Attending [...] Reactions, Alerts No Known Medication Allergies Medications clobetasol topical 0.05% cream 1 appl, TOP, BID, X 14 day, # 60 gm, 1 Refill(s), [id number] Start Date: 05/29/18 Stop Date: 06/26/18 Status: Completed Results No data available for this section Immunizations Given and Recorded Vaccine Date Status Refusal Reason pneumococcal 13-valent vaccine1 02/27/17 Given influenza virus vaccine, inactivated 02/02/15 Given influenza virus vaccine, inactivated2 01/02/14 Given 1Result Comment: PATIENT WAITED IN ROOM TEN MINS NO ALLERGIC REACTION. 2Result Comment: fluzone (quadrivalent) no preservative (>3 yrs.) [[id number]]. Migrated from OBS ; Data migrated from [...] breast Social History Social History Type Response Alcohol Current, Frequency: 1-2 times per month. [...]
--- OUTSIDE RECORDS SUMMARY | 2019-01-13 00:41 | XMS REPORT | Continuity of Care Document ---
Author Author [facility] Address Unknown Phone Unavailable Care Team Providers Care Aeronautical Design Engineer Name Role Phone MD Char, Petty PP Unavailable Insurance Providers Payer name Policy type / Coverage type Policy ID Covered republican ID Policy Moe HUMANA - GOLD CHOICE (MEDICARE REPLACEMENT H Encounters Encounter Performer Location Date Office Visit Petty Pardo MD [facility] September 04, 2014 Problems Problem Effective Dates Problem Status URTICARIA Jul 10, 2013 Inactive DIAB W/O COMP TYPE II/UNS NOT STATED UNCNTRL Jul 10, 2013 Active ESSENTIAL HYPERTENSION, BENIGN Jul 10, 2013 Active HYPERLIPIDEMIA Jul 10, 2013 Active DEPRESSION Jul 10, 2013 Active CONTACT DERMATITIS Jul 22, 2013 Inactive ROUTINE GENERAL MEDICAL EXAM@[facility] Jul 22, 2013 Inactive POSTMENOPAUSAL STATUS Jul 22, 2013 Active VAGINITIS, ATROPHIC Jul 22, 2013 Active HORMONE REPLACEMENT THERAPY Jul 22, 2013 Inactive BODY MASS INDEX BETWEEN 19-24 ADULT Jul 22, 2013 Inactive DYSURIA Jul 29, 2013 Inactive CYSTITIS, ACUTE Jul 29, 2013 Inactive LEG CRAMPS Jan 02, 2014 Inactive NEED FOR PROPHYLACTIC VACCINATION AND INOCULATION AGAINST INFLUENZA Jan 02, 2014 Inactive BREAST SCREENING, UNSPECIFIED Jan 02, 2014 Inactive HYPOMAGNESEMIA Jan 27, 2014 Active HOT FLASHES May 29, 2014 Active ROUTINE GENERAL MEDICAL EXAMINATION AT A HEALTH CARE FACILITY September 04, 2014 Active VARICOSE VEINS, LOWER EXTREMITIES September 04, 2014 Active COLONIC POLYPS, HX OF September 04, 2014 Active COLON CANCER SCREENING September 04, 2014 Active OSTEOARTHRITIS September 04, 2014 Active Procedures Date Description Comments Jul 10, 2013 smoking status never smoker Jul 22, 2013 smoking status never smoker Jul 22, 2013 diabetic foot check yes Jan 02, 2014 smoking status Never smoker Jan 13, 2014 mammogram Completed at [facility] Jan 27, 2014 smoking status Never smoker May 29, 2014 smoking status Never smoker September 04, 2014 smoking status Never smoker Medications Medication Instructions Start Date Status METFORMIN HCL 500 MG TABS take 1 tab by mouth twice daily Jul 10, 2013 Active PROBIOTIC CAPS take 1 cap by mouth daily Jul 10, 2013 Active LOVASTATIN 40 MG TABS Take [...] by mouth daily. Jul 10, 2013 Active CELEXA 10 MG TABS Take one tablet by mouth daily. Jul 22, 2013 Active LISINOPRIL-HYDROCHLOROTHIAZIDE 10-12.5 MG TABS Take one tablet by mouth daily. Jul 10, 2013 Active MAGNESIUM OXIDE 250 MG TABS Take one tablet by mouth daily. Jan 27, 2014 Inactive TRAZODONE HCL 50 MG TABS Take one tablet by mouth at bedtime as needed for insomnia. Jul 22, 2013 Inactive PREMARIN 0.3 MG TABS Take one tablet by mouth daily. Jul 22, 2013 Inactive TRAZODONE HCL 50 MG TABS Take one tablet by mouth at bedtime as needed for insomnia. Jul 15, 2014 Active POTASSIUM 99MG Take one tablet by mouth daily. Jan 02, 2014 Inactive GLUCOSAMINE CHONDR COMPLEX CAPS Take one capsule by mouth twice daily. September 04, 2014 Active VIVELLE-DOT 0.025 MG/24HR PTTW Apply one patch on the skin on upper back or abdominal area twice a week. September 04, 2014 Active ESTROVEN MAXIMUM STRENGTH TABS Take one tablet by mouth daily. May 29, 2014 Inactive JOBST ANTI-EM THIGH HIGH SMALL MISC Wear compression stockings during waking hours and remove at bedtime. September 04, 2014 Active ALEVE TABS Take one tablet by mouth twice daily as needed for pain. Jul 10, 2013 Active Immunizations Vaccine Date [...] WEIGHT 130 lb Jan 02, 2014 height E& - 8302-2 HEIGHT 61 in Jan 02, [...] E&M - 8867-4 PULSE RATE 65 /min Jan 27, 2014 height E& - 8302-2 HEIGHT 61 in Jan 27, 2014 temperature E&M TEMPERATURE 98.1 deg f Jan 27, 2014 respiratory rate E&M - 9279-1 RESP RATE 14 /min Jan 27, 2014 pulse rate E&M - 8867-4 PULSE RATE 62 /min Jan 27, 2014 blood pressure, systolic - 8480-6 BP SYSTOLIC 117 mm Hg Jan 27, 2014 blood pressure, diastolic - 8462-4 BP DIASTOLIC 74 mm Hg Jan 27, 2014 weight E&M - 3141-9 WEIGHT 129 lb May 29, 2014 weight E&M - 3141-9 WEIGHT 133 lb May 29, 2014 height E& - 8302-2 HEIGHT 61 in May 29, 2014 temperature E&M TEMPERATURE 98.0 deg f May 29, 2014 respiratory rate E&M - 9279-1 RESP RATE 16 /min May 29, 2014 pulse rate E&M - 8867-4 PULSE RATE 64 /min May 29, 2014 blood pressure, systolic - 8480-6 BP SYSTOLIC 115 mm Hg May 29, 2014 blood pressure, diastolic - 8462-4 BP DIASTOLIC 77 mm Hg September 04, 2014 height E&M - 8302-2 HEIGHT 61 in September 04, 2014 weight E&M - 3141-9 WEIGHT 133 lb September 04, 2014 blood pressure, systolic - 8480-6 BP SYSTOLIC 109 mm Hg September 04, 2014 blood pressure, diastolic - 8462-4 BP DIASTOLIC 69 mm Hg September 04, 2014 respiratory rate E&M - 9279-1 RESP RATE 16 /min September 04, 2014 pulse rate E&M - 8867-4 PULSE RATE 69 /min September 04, 2014 temperature E&M TEMPERATURE 98.3 deg f Results Date Description Test Name Value Reference [...] platelet count PLATELETS 201 K/CMM /mm3 133-450 September 04, 2014 hemoglobin, blood HGB 14.8 g/dL 12.0-16.0 September 04, 2014 hematocrit, blood HCT 43.8 % 36.0-48.0 September 04, 2014 platelet count PLATELETS 199 K/CMM /mm3 133-450 Jul 29, 2013 urine color UA COLOR [place] null Yellow Abnormal Jul 29, 2013 bacteria, [...] 2014 urea nitrogen, blood BUN 11 mg/dL 7-22 Jan 02, 2014 urea nitrogen/creatinine ratio, serum BUN/CREAT [...] phosphatase, serum ALK PHOS 70 U/L 39-136 Feb 27, 2014 magnesium, serum MAGNESIUM 1.9 mg/dL 1.8-2.4 May 07, 2014 hemoglobin A1C, blood, as % of total hemoglobin HGBA1C 6.2 % <=5.6 High May 07, 2014 cholesterol, serum CHOLESTEROL 151 mg/dl <=199 May 07, 2014 triglyceride, serum, fasting TRIGLYCERIDE 131 mg/dl <=149 May 07, 2014 HDL cholesterol, serum HDL 46 mg/dl >=61 Low May 07, 2014 LDL cholesterol, serum LDL 79 mg/dl <=99 May 07, 2014 magnesium, serum MAGNESIUM 2.1 mg/dL 1.8-2.4 May 07, 2014 sodium, serum SODIUM 145 MEQ/L mmol/L 135-145 May 07, 2014 potassium, serum POTASSIUM 4.0 MEQ/L mmol/L 3.5-5.1 May 07, 2014 creatinine, serum CREATININE 0.5 mg/dL 0.5-1.4 May 07, 2014 urea nitrogen, blood BUN 18 mg/dL 7-May 07, 2014 urea nitrogen/creatinine ratio, serum BUN/CREAT 36 null 6-25 High May 07, 2014 albumin, serum ALBUMIN 4.1 g/dL 3.5-5.0 May 07, 2014 calcium, serum CALCIUM 9.3 mg/dL 8.5-10.5 May 07, 2014 alanine aminotransferase (SGPT), serum SGPT (ALT) 28 U/L 0-65 May 07, 2014 aspartate aminotransferase (SGOT), serum SGOT (AST) 20 U/L 0-37 May 07, 2014 alkaline phosphatase, serum ALK PHOS 66 U/L 39-136 September 04, 2014 hemoglobin A1C, blood, as % of total hemoglobin HGBA1C 6.3 % <=5.6 High September 04, 2014 thyroid stimulating hormone, serum TSH 0.824 uIU/mL 0.360-3.740 September 04, 2014 cholesterol, serum CHOLESTEROL 141 mg/dl <=199 September 04, 2014 triglyceride, serum, fasting TRIGLYCERIDE 191 mg/dl <=149 High September 04, 2014 HDL cholesterol, serum HDL 43 mg/dl >=61 Low September 04, 2014 LDL cholesterol, serum LDL 60 mg/dl <=99 September 04, 2014 magnesium, serum MAGNESIUM 1.9 mg/dL 1.8-2.4 September 04, 2014 sodium, serum SODIUM 142 MEQ/L mmol/L 135-145 September 04, 2014 potassium, serum POTASSIUM 3.9 MEQ/L mmol/L 3.5-5.1 September 04, 2014 creatinine, serum CREATININE 0.5 mg/dL 0.5-1.4 September 04, 2014 urea nitrogen, blood BUN 14 mg/dL 7-September 04, 2014 urea nitrogen/creatinine ratio, serum BUN/CREAT 28 null 6-25 High September 04, 2014 albumin, serum ALBUMIN 4.4 g/dL 3.5-5.0 September 04, 2014 calcium, serum CALCIUM 9.7 mg/dL 8.5-10.5 September 04, 2014 alanine aminotransferase (SGPT), serum SGPT (ALT) 32 U/L 0-65 September 04, 2014 aspartate aminotransferase (SGOT), serum SGOT (AST) 20 U/L 0-37 September 04, 2014 alkaline phosphatase, serum ALK PHOS 73 U/L 39-136
--- OUTSIDE RECORDS SUMMARY | 2019-01-13 00:41 | XMS REPORT | Continuity of Care Document ---
Author Author [facility] Address Unknown Phone Unavailable Care Team Providers Care Talent Solutions Manager Name Role Phone MD Char, Petty PP Unavailable Insurance Providers Payer name Policy type / Coverage type Policy ID Covered libertarian ID Policy Moe HUMANA - GOLD CHOICE (MEDICARE REPLACEMENT H Encounters Encounter Performer Location Date Lab Report Petty Pardo MD [facility] September 04, 2014 Problems Problem [...] smoker Jan 13, 2014 mammogram Completed at [facility] Jan 27, 2014 smoking status Never smoker [...] Jul 29, 2013 urine color UA COLOR [place] null Yellow Abnormal Jul 29, 2013 bacteria, [...]
--- OUTSIDE RECORDS SUMMARY | 2019-01-13 00:41 | XMS REPORT | Continuity of Care Document ---
Author Author [facility] Organization [facility] Address Unknown Phone Unavailable Care Team Providers Care Door Fitter Name Role Phone MD Char, Petty PP Unavailable Insurance Providers Payer name Policy type / Coverage type Policy ID Covered republican ID Policy Moe HUMANA - GOLD CHOICE (MEDICARE REPLACEMENT H Encounters Encounter Performer Location Date Office Visit Petty Pardo MD [facility] May 29, 2014 Problems Problem Effective Dates Problem Status [...] Active HOT FLASHES May 29, 2014 Active Procedures Date Description Comments Jul 10, 2013 smoking status never smoker Jul 22, 2013 smoking status never smoker Jul 22, 2013 diabetic foot check yes Jan 02, 2014 smoking status Never smoker Jan 13, 2014 mammogram Completed at [facility] Jan 27, 2014 smoking status Never smoker May 29, 2014 smoking status Never smoker Medications Medication Instructions Start Date Status IBUPROFEN 400 MG TABS Take 1 tab by mouth three times daily as needed Jul 10, 2013 Active METFORMIN HCL 500 [...] by mouth daily. Jul 22, 2013 Inactive ESTROVEN MAXIMUM STRENGTH TABS Take one tablet by mouth daily. May 29, 2014 Active Immunizations Vaccine Date Status influenza immunization [...] RATE 65 /min Jan 27, 2014 height E&M - 8302-2 HEIGHT 61 in Jan 27, [...] 74 mm Hg Jan 27, 2014 weight E&Sotero - 3141-9 WEIGHT 129 lb May 29, 2014 weight E&M - 3141-9 WEIGHT 133 lb May 29, 2014 height Robbin& - [facility]-2 HEIGHT 61 in May 29, 2014 temperature E&M TEMPERATURE 98.0 deg f May 29, 2014 respiratory rate E&M - 9279-1 RESP RATE 16 /min May 29, 2014 pulse rate E&M - 8867-4 PULSE RATE 64 /min May 29, 2014 blood pressure, systolic - 8480-6 BP SYSTOLIC 115 mm Hg May 29, 2014 blood pressure, diastolic - 8462-4 BP DIASTOLIC 77 mm Hg Results Date Description Test Name Value Reference [...] Jul 29, 2013 urine color UA COLOR [place] null Yellow Abnormal Jul 29, 2013 bacteria, [...] 2014 urea nitrogen, blood BUN 18 mg/dL 7-22 May 07, 2014 urea nitrogen/creatinine ratio, serum BUN/CREAT [...]
--- OUTSIDE RECORDS SUMMARY | 2019-01-13 00:41 | XMS REPORT | Continuity of Care Document ---
Author Author [facility] Address Unknown Phone Unavailable Care Team Providers Care Public Relations Professional Name Role Phone MD Char, Petty PP Unavailable Insurance Providers Payer name Policy type / Coverage type Policy ID Covered republican ID Policy Moe HUMANA - GOLD CHOICE (MEDICARE REPLACEMENT H Encounters Encounter Performer Location Date Office Visit Petty Pardo MD [facility] Jan 27, 2014 Problems Problem Effective Dates Problem Status [...] 2014 Inactive HYPOMAGNESEMIA Jan 27, 2014 Active Procedures Date Description Comments Jul 10, 2013 smoking status never smoker Jul 22, 2013 smoking status never smoker Jul 22, 2013 diabetic foot check yes Jan 02, 2014 smoking status Never smoker Jan 13, 2014 mammogram Completed at [facility] Jan 27, 2014 smoking status Never smoker Medications Medication [...] needed for insomnia. Jul 22, 2013 Active PREMARIN 0.3 MG [...] by mouth daily. Jul 10, 2013 Active CITALOPRAM HYDROBROMIDE 10 MG TABS Take one tablet by mouth daily. Jul 22, 2013 Active MAGNESIUM OXIDE 250 MG TABS Take one tablet by mouth daily. Jan 27, 2014 Active Immunizations Vaccine Date Status influenza [...] weight E&M - 3141-9 WEIGHT 129 lb Results Date Description Test Name Value Reference [...] Jul 29, 2013 urine color UA COLOR [place] null Yellow Abnormal Jul 29, 2013 bacteria, [...] urea nitrogen/creatinine ratio, serum BUN/CREAT 28 null 6- High Jul 22, 2013 albumin, serum ALBUMIN [...]
--- OUTSIDE RECORDS SUMMARY | 2019-01-13 00:41 | XMS REPORT | Continuity of Care Document ---
Author Author [facility] Address Unknown Phone Unavailable Care Team Providers Care Lofter Name Role Phone MD Char, Petty PP Unavailable Insurance Providers Payer name Policy type / Coverage type Policy ID Covered green party ID Policy Moe HUMANA - GOLD CHOICE (MEDICARE REPLACEMENT H Encounters Encounter Performer Location Date Lab Report Petty Pardo MD [facility] Feb 27, 2014 Problems Problem Effective Dates Problem [...] smoker Jan 13, 2014 mammogram Completed at [facility] Jan 27, 2014 smoking status Never smoker [...] Jul 29, 2013 urine color UA COLOR [place] null Yellow Abnormal Jul 29, 2013 bacteria, [...]
--- OUTSIDE RECORDS SUMMARY | 2019-01-13 00:41 | XMS REPORT | Continuity of Care Document ---
Author Author [facility] Address Unknown Phone Unavailable Care Team Providers Care Contracts Manager Name Role Phone MD Char, Petty PP Unavailable Insurance Providers Payer name Policy type / Coverage type Policy ID Covered libertarian ID Policy Moe HUMANA - GOLD CHOICE (MEDICARE REPLACEMENT H Encounters Encounter Performer Location Date Lab Report Petty Pardo MD [facility] May 07, 2014 Problems Problem Effective Dates Problem Status [...] smoker Jan 13, 2014 mammogram Completed at [facility] Jan 27, 2014 smoking status Never [...] by mouth daily. Jan 27, 2014 Active CITALOPRAM HYDROBROMIDE 10 MG TABS Take one tablet by mouth daily.--please provide patient education Jul 22, 2013 Active Immunizations Vaccine Date Status influenza [...] Jul 29, 2013 urine color UA COLOR [place] null Yellow Abnormal Jul 29, 2013 bacteria, [...]
--- OUTSIDE RECORDS SUMMARY | 2019-01-13 00:42 | XMS REPORT | Summary of Care ---
Author Author BRANDEN MARSHALL M.D. Organization Unknown Address [facility] Phone Unavailable Care Team Providers Care Drink Mixer Name Role Phone PADILLA ROBBINS M.D. Unavailable Unavailable BRANDEN MARSHALL M.D. Unavailable Unavailable Functional Status Name Dates Details Functional status health issues are not documented Status: Name Dates Details Cognitive status health issues are not documented Status: Problems Name Dates Details Limb pain (729.5, M79.609) Status: Active Traumatic rotator cuff tear, right, initial encounter (840.4, S46.011A) Status: Active Type 2 superior labrum extending from anterior to posterior (SLAP) lesion of right shoulder, initial encounter (840.7, S43.431A) Status: Active Anterior subluxation of humerus, right, initial encounter (831.01, S43.011A) Status: Active Medications Name Dates Details Meloxicam 7.5 MG Oral Tablet TAKE ONE TABLET ONCE A DAY NEEDED FOR PAIN Quantity: 30 BRANDEN MARSHALL M.D. * Start : 16-Nov-2016 Active methylPREDNISolone 4 MG Oral Tablet Therapy Pack TAKE DIRECTED * Quantity: 1 Refills: 0 BRANDEN MARSHALL M.D. * Start : 16-Nov-2016 Active 21 Tablet Pack Diclofenac Sodium 1 % Transdermal Gel APPLY TO UPPER EXTREMITIES, 2 GM OF GEL TO AFFECTED AREA 4 TIMES DAILY. DO NOT APPLY MORE THAN 8 GM DAILY TO ANY ONE AFFECTED JOINT. * Quantity: 3 Refills: 2 BRANDEN MARSHALL M.D. * Start : 16-Nov-2016 Active 100 GM Tube Cyclobenzaprine HCl - 5 MG Oral Tablet TAKE 1 TABLET 3 TIMES DAILY NEEDED. * Quantity: 30 Refills: 0 PADILLA ROBBINS M.D. * Start : 02-Feb-2017 Active traMADol HCl - 50 MG Oral Tablet TAKE 1 TO 2 TABLETS EVERY 4 TO 6 HOURS NEEDED FOR PAIN. * Quantity: 50 Refills: 1 ROSENDO Grover, PADILLA * Start : 28-Sep-2017 Active Allergies and Adverse Reactions Name Dates Details No Known Drug Allergies (Allergy) Status: Active Procedures Procedure Dates Details Procedures not documented Immunization Name Dates Details Immunizations not documented Social History Name Dates Details Unknown if ever smoked Vital Signs Date Test Result Details No Known Vitals to report Results Date Description Value Details Results not documented Plan of Care Name Dates Details Planned Observations Planned Goals not documented Interventions Provided Medication Changes* Diclofenac Sodium 1 % Transdermal Gel - Start * Meloxicam 7.5 MG Oral Tablet - Start * methylPREDNISolone 4 MG Oral Tablet Therapy Pack - Start Instructions Name Dates Details Instructions not documented Encounters Appointment; BRANDEN MARSHALL M.D. Encounter Diagnosis: Problem not documented On: 16-Nov-2016 9:30 Appointment; BRANDEN MARSHALL M.D. Encounter Diagnosis: Problem not documented On: 15-Dec-2016 11:15 Appointment; PADILLA ROBBINS M.D. Encounter Diagnosis: Problem not documented On: 03-Jan-2017 10:30 Appointment; PADILLA ROBBINS M.D. Encounter Diagnosis: Problem not documented On: 18-Jan-2017 7:00 Appointment; PDAILLA ROBBINS M.D. Encounter Diagnosis: Problem not documented On: 24-Jan-2017 10:45 Appointment; PADILLA ROBBINS M.D. Encounter Diagnosis: Problem not documented On: 02-Feb-2017 10:45 Appointment; PADILLA ROBBINS M.D. Encounter Diagnosis: Problem not documented On: 02-Mar-2017 14:15 Appointment; PADILLA ROBBINS M.D. Encounter Diagnosis: Problem not documented On: 13-Apr-2017 15:15 Appointment; PADILLA ROBBINS M.D. Encounter Diagnosis: Problem not documented On: 15-Jun-2017 14:45 Appointment; PADILLA ROBBINS M.D. Encounter Diagnosis: Problem not documented On: 22-Jun-2017 15:15 Appointment; PADILLA ROBBINS M.D. Encounter Diagnosis: Problem not documented On: 28-Sep-2017 9:45 Appointment; PADILLA ROBBINS M.D. Encounter Diagnosis: Problem not documented On: 28-Sep-2017 13:00
--- OUTSIDE RECORDS SUMMARY | 2019-01-13 00:42 | XMS REPORT | Continuity of Care Document ---
Author Author [facility] Address Unknown Phone Unavailable Care Team Providers Care Rivet Bucker Name Role Phone MD Char, Petty PP Unavailable Insurance Providers Payer name Policy type / Coverage type Policy ID Covered green party ID Policy Moe HUMANA - GOLD CHOICE (MEDICARE REPLACEMENT H Encounters Encounter Performer Location Date Office Visit Petty Pardo MD [facility] Oct 09, 2014 Problems Problem Effective Dates Problem Status [...] A [facility] September 04, 2014 Inactive VARICOSE VEINS, LOWER EXTREMITIES September 04, 2014 Active COLONIC POLYPS, HX OF September 04, 2014 Active COLON CANCER SCREENING September 04, 2014 Inactive OSTEOARTHRITIS September 04, 2014 Active URINARY INCONTINENCE Oct 09, 2014 Active OVERACTIVE BLADDER Oct 09, 2014 Active Procedures Date Description Comments Jul 10, 2013 smoking status never smoker Jul 22, 2013 smoking status never smoker Jul 22, 2013 diabetic foot check yes Jan 02, 2014 smoking status Never smoker Jan 13, 2014 mammogram Completed at [facility] Jan 27, 2014 smoking status Never smoker May 29, 2014 smoking status Never smoker September 04, 2014 smoking status Never smoker Oct 09, 2014 smoking status Never smoker Medications Medication [...] as needed for pain. Jul 10, 2013 Inactive DICLOFENAC SODIUM 50 MG TBEC Take one tablet by mouth three times a day as needed for pain. Take with food. Oct 09, 2014 Active Immunizations Vaccine Date Status influenza [...] WEIGHT 133 lb May 29, 2014 height E&M - 8302-2 HEIGHT 61 in May 29, [...] 2014 temperature E&M TEMPERATURE 98.3 deg f Oct 09, 2014 height E&M - 8302-2 HEIGHT 61 in Oct 09, 2014 weight E&M - 3141-9 WEIGHT 132.13 lb Oct 09, 2014 temperature E&M TEMPERATURE 97.1 deg f Oct 09, 2014 respiratory rate E&M - 9279-1 RESP RATE 14 /min Oct 09, 2014 pulse rate E&M - 8867-4 PULSE RATE 60 /min Oct 09, 2014 blood pressure, systolic - 8480-6 BP SYSTOLIC 118 mm Hg Oct 09, 2014 blood pressure, diastolic - 8462-4 BP DIASTOLIC 74 mm Hg Results Date Description Test Name [...] Jul 29, 2013 urine color UA COLOR [place] null Yellow Abnormal Jul 29, 2013 bacteria, [...] 2014 urea nitrogen, blood BUN 14 mg/dL -September 04, 2014 urea nitrogen/creatinine ratio, serum BUN/CREAT [...]
== END 2019-01-13 01:40 | disposition home or self-care (01) ==
LOC: FSED 00:34
DX: N30.90 Cystitis, unspecified without hematuria (principal); I10 Essential (primary) hypertension; E11.9 Type 2 diabetes mellitus without complications; K21.9 Gastro-esophageal reflux disease without esophagitis; E78.5 Hyperlipidemia, unspecified; F32.9 Major depressive disorder, single episode, unspecified
CPT/HCPCS: 81003; 99282